=== PATIENT | male | born 1935 | race Caucasian/White ===

== ENCOUNTER 2016-10-03 13:26 | Inpatient (IN) | payer MEDICARE ==
[2016-10-03] MEDS ORDERED: Acetaminophen TAB* 325 MG PO PRN (14:16)
[2016-10-03] MEDS ORDERED: Ondansetron INJ* 2 MG/ML VIAL IV PRN (14:16)
--- NOTE | 2016-10-03 14:35 | RAD ---
Indication: Tachypnea. Single frontal view of the chest performed at 1415 hours was reviewed. Comparison is made with previous exam dated April 23, 2015. No mediastinal shift is noted. Heart is of normal size and configuration. Lung holland appear clear. IMPRESSION: NO ACTIVE CARDIOPULMONARY DISEASE IS NOTED.
[2016-10-03 15:06] LABS: Hematocrit 36 % (42-52); Mean Corpuscular HGB Conc 33 g/dl (31-36); Mean Corpuscular Hemoglobin 29 pg (27-31); Mean Corpuscular Volume 89 fL (80-94); Mean Platelet Volume 8 um3 (7.4-10.4); Red Cell Distribution Width 17 % (10.5-15); White Blood Count 9.2 10^3/ul (3.5-10.8)
--- NOTE | 2016-10-03 15:25 | ED ---
Da De Jesus Billy, scribed for Charlie Fabian MD on 10/03/16 at 1406 . Complex/Multi-Sys Presentation - HPI Summary HPI Summary: Patient is an 81 year-old male BIBA to [facility] from Dr. Ivey (cardiology) after an abnormal stress test. He denies any chest pain or SOB in the ED at this time. He has chronic bilateral pedal edema. - History Of Current Complaint Chief Complaint: EDChestPainROMI Time Seen by Provider: 10/03/16 13:45 Hx Obtained From: Patient Onset/Duration: Gradual Onset Timing: Intermittent, Lasting: Severity Currently: Moderate Aggravating Factor(s): none Alleviating Factor(s): none Associated Signs And Symptoms: Positive: Edema. 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 Denies: Hx Diabetes, Hx Thyroid Disease Cardiovascular History: Reports: Hx Coronary Artery Disease, Hx Hypertension - WELL CONTROLLED Denies: Hx Angina, Hx Peripheral Vascular Disease GI History: Reports: 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, Other GI Disorders - THIS ADMISSION - GI BLEED History: Reports: Hx Benign Prostatic Hyperplasia, Other Problems/ Disorders - BPH Musculoskeletal History: Reports: Hx Arthritis - RA Denies: Hx Osteoporosis Sensory History: Reports: Hx Cataracts, Hx Contacts or Glasses Denies: Hx Hearing Aid Opthamlomology History: Reports: Hx Cataracts, Hx Contacts or Glasses Neurological History: Denies: Hx Headaches - Surgical History Surgery Procedure, Year, and Place: hernia repair X2 [facility] [place] APPROX 2009 Hx Anesthesia Reactions: No Infectious Disease History: No Infectious Disease History: Denies: Traveled Outside the [place] in Last 30 Days - Family History Known Family History: Negative: Cardiac Disease, Hypertension, Diabetes - Social History Alcohol Use: Daily Alcohol Amount: 2 BEERS/DAY Substance Use Type: Reports: None Smoking Status (MU): Former Smoker Type: Cigarettes Have You Smoked in the Last Year: No Review of Systems Negative: Chest Pain Negative: Shortness Of Breath Positive: Edema All Other Systems Reviewed And Are Negative: Yes Physical Exam Triage Information Reviewed: Yes Vital Signs On Initial Exam: Initial Vitals Temp Pulse Resp BP Pulse Ox 98.3 F 72 18 130/74 99 10/03/16 13:30 10/03/16 13:30 10/03/16 13:30 10/03/16 13:30 10/03/16 13:30 Vital Signs Reviewed: Yes Appearance: Positive: Well-Appearing, No Pain Distress Skin: Positive: Warm, Skin Color Reflects Adequate Perfusion, Dry Head/Face: Positive: Normal Head/Face Inspection Eyes: Positive: EOMI, TRAVIS Neck: Positive: Supple Respiratory/Lung Sounds: Positive: Clear to Auscultation, Breath Sounds Present Cardiovascular: Positive: RRR Abdomen Description: Positive: Nontender, Soft Musculoskeletal: Positive: Strength/ROM Intact, Edema Left - bilat pedal edema, Edema Right - bilat pedal edema Neurological: Positive: Normal, Sensory/Motor Intact, Alert, Oriented to Person Place, Time Psychiatric: Positive: Affect/Mood Appropriate Diagnostics - Vital Signs Vital Signs Temp Pulse Resp BP Pulse Ox 10/03/16 13:30 98.3 F 72 18 130/74 99 - Laboratory Result Diagrams: 10/03/16 14:50 Lab Statement: Any lab studies that have been ordered have been reviewed, and results considered in the medical decision making process. - Radiology CXR Xray Interpretation: No Acute Changes Radiology Interpretation Completed By: Radiologist - EKG 1340 Cardiac Rate: NL EKG Rhythm: Sinus Rhythm - 71 Ectopy: PACs EKG Interpretation: 1mm ML in III; ST dep in V4-V6. Complex Multi-Symp Course/Dx Assessment/Plan: DISCUSSED WITH DR JANSEN. ADMIT HOSPITALIST STABLE. - Diagnoses Provider Diagnoses: abnormal stress, Chest pain - Physician Notifications Discussed Care Of Patient With: Dr. Lechuga (cardiology) @ 1402: consult Dr. Jansen. Dr. Jansen (interventional cardiology) @ 1408: recommends admission. Dr. Lewis (hospitalist) @ 1413: accepts admission. Discharge - Discharge Plan Condition: Stable Disposition: ADMITTED TO [facility] documentation as recorded by the Da ramsey Billy accurately reflects the service I personally performed and the decisions made by , Charlie Fabian MD.
[2016-10-03 15:28] LABS: Albumin 3.6 g/dL (3.2-5.2); BUN/Creatinine Ratio 31.8 (8-20); C Reactive Protein 2.84 mg/L (< 5.00); Calcium 9.2 mg/dL (8.6-10.3); EGFR African American 110.7 (>60); EGFR Non-African American 86.1 (>60); Globulin 2.6 g/dL (2-4); Magnesium 2.2 mg/dL (1.9-2.7); Potassium 4.1 mmol/L (3.5-5.0); Total Bilirubin 0.5 mg/dL (0.2-1.0); Total Protein 6.2 g/dL (6.4-8.9)
[2016-10-03] MEDS ORDERED: Nitroglycerin TAB 0.4 MG* 0.4 MG TAB SL PRN (15:32)
[2016-10-03 15:37] LABS: Troponin I 1.65 ng/mL (<0.04)
[2016-10-03 15:46] LABS: TSH (Thyroid Stimulating Horm) 4.19 mcIU/mL (0.34-5.60)
[2016-10-03] MEDS ORDERED: Enoxaparin(*) 80 MG/0.8 ML SYR SUBCUT SCH (16:00)
[2016-10-03] MEDS ORDERED: Aspirin Low Dose CHEW TAB* 81 MG PO ONE (17:00)
--- NOTE | 2016-10-03 18:10 | HP ---
AMENDED REPORT NOW INCLUDES DATE OF ADMISSION ADMISSION HISTORY AND PHYSICAL: DATE OF ADMISSION: 10/03/16 PRIMARY CARE PROVIDER: Dr. Dumont. INFANT TODDLER LEAD TEACHER: Dr. Ivey. HEALTHCARE PROXY: Monserrat, his daughter. CODE STATUS: Full. SOURCE OF INFORMATION: History obtained from interview with the patient, review of [facility] records. CHIEF COMPLAINT: Abnormal stress test. HISTORY OF PRESENT ILLNESS: This is an 81-year-old man, past medical history of rheumatoid arthritis, on steroids; BPH; hypertension, who has had abdominal pain, also described as chest pain that was described as "just hurt," better with standing, worse with any types of exertion, either "mental or physical," improved with rest. He believes the pain started sometime around when he restarted his prednisone in August of 2016 after being off it since March 2016. The pain can last up to 5 minutes; however, recently, it has been lasting longer. It is not associated with any shortness of breath, lightheadedness, or PND, but does note increasing orthopnea, essentially, he has been sleeping in the recliner for at least the last week as well as increasing lower extremity edema. He underwent a stress test as an outpatient under the direction of Dr. Ivey, which was interpreted as a high-risk stress for which he was referred to the emergency room for evaluation, admission, and likely cardiac catheterization. When seen by this author, the patient denies any chest pain, shortness of breath, nausea, vomiting, or palpitations. He generally feels well and is in agreement with the plan. PAST MEDICAL HISTORY: Includes rheumatoid arthritis, on steroids; BPH; hypertension; hypercholesterolemia; history of malignant neoplasm of the prostate; first-degree AV block; osteoarthritis; anemia. MEDICATIONS: Include: 1. Prednisone 20 mg alternating with 30 mg. 2. Flomax 0.4 mg . 3. Prilosec 20 mg twice daily. 4. Multivitamin 1 tab daily. 5. Prostate Health over the counter. 6. Metoprolol 25 twice daily. 7. Benadryl 25 mg twice daily. 8. Vitamin D 400 units daily. 9. Atorvastatin 20 mg daily. ALLERGIES TO MEDICATIONS: Include INFLUENZA VACCINE. FAMILY HISTORY: Mother with breast cancer. Father, noncontributory. SOCIAL HISTORY: Former tobacco, quit in 1985. Smoked on and off up to a pack a day at his most. No alcohol, previous 1 to 2 drinks per day. REVIEW OF SYSTEMS: As per HPI; otherwise, all other systems negative. PHYSICAL EXAMINATION GENERAL: Sitting up in the bed, interactive, pleasant, in no apparent distress. VITAL SIGNS: 130/71, heart rate 72, respiratory rate 16, 99% on room air, T- max in the emergency room 98.3. HEENT: Oropharynx clear. Has moist mucous membranes. Sclerae are anicteric. LUNGS: Clear to auscultation. HEART: Regular rate and rhythm. ABDOMEN: Soft, nontender, nondistended. EXTREMITIES: Warm and well perfused. He has 3+ pitting edema to the knees and an area of erythema over his medial left lower extremity that is not warm or tender to palpation. NEUROLOGIC: He is alert and oriented x3. His cranial nerves II through XII are intact. LABORATORY DATA: Labs reviewed: BUN 27, creatinine 0.85. CK-MB is 18.9. Troponin I is still pending. CRP 2.8. BNP 755. TSH is still pending. INR 0.87. ASSESSMENT AND PLAN: This is an 81-year-old gentleman, past medical history as indicated above, had gastric pain, also described as chest pain for at least a month now, identified with a high-risk stress, admitted now for further monitoring prior to likely cardiac catheterization. 1. High-risk stress. Discussed the care with Dr. Roy, who will evaluate the patient later today. Can eat now, will be made n.p.o. by Dr. Roy should the plan be to pursue to cardiac catheterization. Continue aspirin in the morning. Nitroglycerin sublingual available if the patient should develop chest pain. Continue telemetry monitoring. 2. Hypertension: Continue metoprolol. 3. Rheumatoid arthritis: Continue prednisone 30 mg a day. Typically alternating with 20 mg. Can consider increasing dose in the setting of stress should he develop hypotension. We will not give stress-dose steroids at this time in the setting of cardiac catheterization. 4. Benign prostatic hyperplasia: Continue tamsulosin. 5. DVT prophylaxis: Heparin subcu. 6. Code status: Full. CC: Dr. Dumont; Dr. Ivey* [id number]/[facility] #: [id number] [facility]
[2016-10-03 18:27] LABS: Urine Bilirubin Negative (Negative); Urine Glucose Negative (Negative); Urine Nitrite Negative (Negative)
[2016-10-03] MEDS ORDERED: Nitroglycerin 0.3 MG/HR PATCH* (7.5 MG) TRANSDERM SCH (20:00)
--- NOTE | 2016-10-03 20:46 | CONS ---
INTERVENTIONAL CARDIOLOGY CONSULT NOTE: DATE OF CONSULT: 10/03/16 PRIMARY CARE PHYSICIAN: Jomar Dumont DO TAX COMPLIANCE REPRESENTATIVE: Jesus Alberto Ivey DO HISTORY OF PRESENT ILLNESS: An 81-year-old male admitted with unstable angina, markedly positive stress test. He is a somewhat vague historian, has extensive records in [facility], which I have reviewed including reviewing his CT images, EKGs, and labs. He apparently has bullous pemphigoid for which he is treated with intermittent steroids. He also has rheumatoid arthritis. He was hospitalized here 04/22/15 with a cellulitis and sepsis. During that hospitalization, had a rise in troponins thought possibly due to a type 2 infarct. He had an echocardiogram, which was technically limited, but showed grossly normal ejection fraction. Lexiscan on 04/25/15 was low risk without ischemia or infarct. He was discharged on aspirin and Plavix and prednisone. Within a week or two, he was admitted with a duodenal ulcer with GI bleed with hemoglobin as low as 6.9. Aspirin and Plavix were stopped. He had a duodenal ulcer by endoscopy, was readmitted a few days later with weakness. Repeat echo showed EF of 45 to 50 with global hypokinesis , moderate pulmonary hypertension at 42. During his GI bleed hospitalization, he had again small rise in troponin up to 1.88. Since then, he describes probable predictable exertional angina, although he describes a lot of symptoms of gas as well as precordial discomfort with activity and seems to mix them up. However, until about a week ago, his precordial exertional chest discomfort was fairly stable and not limiting. He was able to walk up and down his cellar flights without any problems. In the past week, his precordial discomfort has worsened dramatically to the point where he had it at rest yesterday. He describes as present all night long until he took some Gas-X. Today, he saw Dr. Ivey, had a stress test where he only exercised for 3 minutes, had angina for 12 minutes, per report LVEF was 29% and he had partial reversible defect in the RCA and LAD distributions accompanied by transient ischemic dilatation. He was then sent to the ER and admitted. He is currently pain-free. He denies PND or orthopnea, prior exertional dyspnea. He has chronic lower extremity edema, right worse than left that he attributes to his pemphigoid and steroids. Prior CT in 2014 by my measurement did show pulmonary hypertension with proximal pulmonary arteries in excess of 20 mm. The echo in May of 2015 estimated moderate pulmonary hypertension. He has not had any further bleeding, but has not been on antiplatelet therapy. PAST MEDICAL HISTORY: Rheumatoid arthritis, hypertension, bullous pemphigoid, previous duodenal ulcer. PREHOSPITAL MEDICATIONS: 1. Prednisone 30, 20 every other day. 2. Flomax 0.4 daily. 3. Adenosylmethionine. 4. Vitamins. 5. Lopressor 25 b.i.d. 6. Nasalide. 7. Lipitor 20 daily. 8. Tylenol. He has not been on long-term PPI. ALLERGIES: According to the record to INFLUENZA VACCINE, which he blames for causing his bullous pemphigoid. SOCIAL HISTORY: He is independent, lives alone. FAMILY HISTORY: Negative for premature coronary artery disease. PHYSICAL EXAMINATION: General: He is an elderly male, he looks somewhat frail , but he is ambulatory and oriented. Vital Signs: His blood pressure today 134 /54, pulse 60s to 70s, sinus rhythm. His lungs are clear to percussion and auscultation. Neck: JVP is upper limits of normal at 10. Carotids are normal without bruits. HEENT: Unremarkable without xanthelasma, scleral injection, or jaundice. Cardiac Exam: I cannot feel the RV or the apex. Heart sounds are fairly distant. He has a probable S4 gallop. I do not hear an S3 or a murmur. Abdomen: Soft, nontender, aorta and liver are not palpable. He has no abdominal bruit. Femoral pulses are very faintly palpable bilaterally without bruits. Extremities: His radials are normal, his posterior tibials are present by Doppler. He does not have palpable dorsalis pedis. He has bilateral 1 to 2+ pitting edema, has erythema on the left santiago, which he says has been present for many months since his pemphigoid. Neuro: He is alert, oriented, seems to have somewhat short-term memory loss. LABORATORY DATA: Hemoglobin is normal at 12. BMP is unremarkable. Troponins 1.65. BNP is high at 755 without prior. Chest x-ray by my review suggest generous pulmonary arteries without heart failure. EKG shows less than 0.[address] elevation in III with SC depression and anterolateral ST segment depression in the precordial leads, actually improved compared to 05/18/15. IMPRESSION: 1. Troponin positive acute coronary syndrome. He had by history prolonged chest discomfort yesterday evening, which resolved with Gas-X. Today, he had an early positive stress test with TID and at least 2-vessel distribution scar with perimeter ischemia. LVEF has dropped to 29% from low normal. Prior echo demonstrated moderate pulmonary hypertension. We discussed the diagnosis, cardiac cath, the other radial approach, discussed possible need for percutaneous revascularization with dual antiplatelet therapy. Given his duodenal ulcer within 2 weeks of dual antiplatelet therapy, we will utilize bare -metal stents if he needs stenting. He will also be placed on gastroprotection. 2. LV systolic dysfunction, currently compensated. 3. Hypertension. 4. Rheumatoid arthritis. 5. Diagnosis of bullous pemphigoid. 6. Moderate pulmonary hypertension by echo and supported by CT imaging. Thanks for the consultation. I will follow with you as needed. CC: Jomar Dumont DO; Jesus Alberto Ivey DO* [id number]/[facility] #: [id number] [facility]ERYessi
[2016-10-03] MEDS ORDERED: Tamsulosin CAP* 0.4 MG PO SCH (21:00)
[2016-10-03] MEDS ORDERED: Metoprolol Tartrate TAB* 25 MG PO SCH (21:00)
[2016-10-03] MEDS ORDERED: Atorvastatin* 40 MG TAB PO SCH (21:00)
[2016-10-03] MEDS ORDERED: Atorvastatin* 80 MG TAB PO SCH (21:00)
[2016-10-03] MEDS: Metoprolol Tartrate TAB* 25 MG PO SCH (21:46)
[2016-10-03] MEDS: Omeprazole CAP* 20 MG PO SCH (21:47)
[2016-10-03] MEDS ORDERED: Heparin VIAL(*) 5000 UNITS/ML VIAL (FIVE THOUSAND) SUBCUT SCH (22:00)
[2016-10-04] MEDS: Metoprolol Tartrate TAB* 25 MG PO SCH ×2 (02:06→08:22)
[2016-10-04] MEDS ORDERED: NS 0.9% 1000 ML* 1,000 ML IV SCH (08:00)
[2016-10-04] MEDS: Omeprazole CAP* 20 MG PO SCH (08:21)
[2016-10-04] MEDS ORDERED: Aspirin EC Low Dose* 81 MG TAB.EC PO SCH (09:00)
[2016-10-04] MEDS ORDERED: predniSONE TAB* 10 MG PO SCH (09:00)
[2016-10-04] MEDS ORDERED: Nitro Patch/OINT Remove PATCH OFF SCH (10:00)
[2016-10-04] MEDS ORDERED: Midazolam* 1 MG/ML 5 ML VIAL (5 MG) ONE (11:02)
[2016-10-04] MEDS ORDERED: Heparin(*) 1000 UNIT/ML 10 ML VIAL CATH LAB IV ONE (11:02)
[2016-10-04] MEDS ORDERED: VERAPAMIL 2.5 MG/ML 4 ML VIAL ONE (11:02)
[2016-10-04] MEDS ORDERED: fentaNYL* 50 MCG/ML 2 ML VIAL (100 MCG VIAL) ONE (11:02)
[2016-10-04] MEDS ORDERED: nitroGLYCERIN DRIP* 250 ML ONE (11:03)
[2016-10-04] MEDS ORDERED: Lidocaine 1% INJ* 10 MG/ML 30 ML SDV ONE (11:03)
[2016-10-04] MEDS ORDERED: Iohexol 350 (CONTRAST) 200 ML MDV IV ONE (11:03)
[2016-10-04] MEDS ORDERED: Heparin 2 UNITS/ML IVPREMIX* 2,000 ML IV ONE (11:03)
[2016-10-04 11:17] VITALS: BP 110/48
--- NOTE | 2016-10-04 14:38 | TRS ---
DATE OF ADMISSION: 10/03/2016. DATE OF TRANSFER TO [facility]: 10/04/2016. PRIMARY CARE PROVIDER: Dr. Dumont. FOUNDER CEO & PRESIDENT: Dr. Ivey. PRINCIPAL DIAGNOSIS: Left main coronary artery disease and totally occluded right coronary artery. SECONDARY DIAGNOSES: 1. Bullous pemphigoid. 2. Rheumatoid arthritis. 3. Benign prostatic hypertrophy. 4. Hypertension. 5. Hypercholesterolemia. 6. Prostate cancer. DISCHARGE MEDICATIONS: 1. Tylenol 650 mg p.o. q.4 hours prn pain. 2. Aspirin 81 mg p.o. daily. 3. Lipitor 80 mg p.o. at bedtime. 4. Metoprolol Tartrate 25 mg p.o. q.6 hours. 5. Nitroglycerin 7.5 mg patch apply topically daily. 6. Nitroglycerin 0.4 mg SL q.5 minutes prn chest pain. 7. Prilosec 20 mg p.o. daily. 8. Zofran 4 mg IV q.4 hours prn nausea. 9. Prednisone 30 mg p.o. daily. 10. Normal saline 100 ml per hour. 11. Tamsulosin 0.4 mg p.o. at bedtime. HOSPITAL COURSE: Mr. Dong is an 81-year-old male who presented to the emergency room on 10/03/2016 with an abnormal stress test. The patient was referred to the emergency room after having an abnormal stress test under the direction of Dr. Ivey. The patient was referred again to the ER for admission and likely cardiac catheterization. At the time of admission, the patient denied any chest pain, shortness of breath, nausea, vomiting or palpitations. In the emergency room, the patient had routine lab work obtained which revealed his troponin to be elevated at 1.65. This peaked at 2.18. The patient was seen in consultation by Dr. Roy who noted that his stress test revealed at least two vessel distribution scar with perimeter ischemia and that his LVEF had dropped to 29 percent from low normal. Cardiac catheterization was recommended via radial approach and the patient agreed. Of note, the patient has a history of duodenal ulcer and it is felt that if stenting was needed, a bare metal stent would be utilized. The patient went for cardiac catheterization today, 10/04/2016. He was found to have a totally occluded right coronary artery and a "tight" left main. At that point, the procedure was aborted. The decision was made for transfer to [facility]. The patient has been accepted in transfer by Dr. Chao. The patient will be transferred today, 10/04/2016. At this point again, the patient is chest pain free and doing well post cardiac catheterization. FOLLOW-UP CONCERNS: The patient is being transferred [facility] today, 10/04/2016. He has been accepted by Dr. Chao. ACTIVITY LEVEL: Bed rest. DIET: Low fat. CONDITION ON TRANSFER: Stable. Thirty-five minutes were spent on the transfer of this patient. CC: Dr. Ivey; Dr. Dumont * [id number]/[facility] #: [id number] [facility]
--- NOTE | 2016-10-04 17:11 | PN ---
Subjective Date of Service: 10/04/16 Interval History: Pt is feeling well. He has mild soreness in his R wrist. No chest pain or SOB at this time. Objective Vital Signs 10/03/16 10/03/16 10/04/16 20:00 21:32 00:11 Temperature 98.0 F 97.5 F Pulse Rate 62 62 Respiratory 16 18 20 Rate Blood Pressure 108/41 115/52 (mmHg) O2 Sat by Pulse 98 99 Oximetry 10/04/16 10/04/16 10/04/16 04:31 07:14 08:00 Temperature 97.7 F 98.8 F Pulse Rate 58 57 Respiratory 20 16 16 Rate Blood Pressure 103/46 110/44 (mmHg) O2 Sat by Pulse 97 96 Oximetry 10/04/16 11:04 Temperature 98.7 F Pulse Rate 57 Respiratory 18 Rate Blood Pressure 110/48 (mmHg) O2 Sat by Pulse 100 Oximetry Oxygen Devices in Use Now: None Appearance: Elderly male sitting up in the stretcher, NAD Eyes: No Scleral Icterus Ears/Nose/Mouth/Throat: Mucous Membranes Moist Respiratory: Symmetrical Chest Expansion and Respiratory Effort, Clear to Auscultation - anteriorly Cardiovascular: NL Sounds; No Murmurs; No JVD, RRR, - - R wrist in immobilizer, marked B/L LE edema Abdominal: NL Sounds; No Tenderness; No Distention Extremities: No Clubbing, Cyanosis Skin: No Rash or Ulcers, No Nodules or Sclerosis Neurological: Alert and Oriented x 3 Result Diagrams: 10/03/16 14:50 10/03/16 14:50 Assess/Plan/Problems-Billing Mr Dong is an 81 yo M who has a h/o bullous pemphigoid, RA and HTN who presented to the ER after having an abnormal stress test. - Patient Problems (1) CAD (coronary artery disease) Status: Acute Code(s): I25.10 - ATHSCL HEART DISEASE OF [place] CORONARY ARTERY W/O ANG PCTRS SNOMED Code(s): 58091292 Comment: Pt was found to have a totally occluded RCA and a "tight" left main on cath earlier today. He has agreed to transfer to [facility] for bypass. Dr. Chao has accepted the patient in transfer and he will be going there this afternoon. Continue ASA and lipitor. (2) BPH (benign prostatic hypertrophy) Status: Acute Code(s): N40.0 - BENIGN PROSTATIC HYPERPLASIA WITHOUT LOWER URINRY TRACT SYMP SNOMED Code(s): 826989174 Comment: Continue flomax. (3) Bullous pemphigoid Status: Acute Code(s): L12.0 - BULLOUS PEMPHIGOID SNOMED Code(s): 13086925 Comment: Pt has bandage over lesion on anterior R lower leg. Continue prednisone 30mg daily. (4) DVT prophylaxis Status: Acute Code(s): XJU0685 - SNOMED Code(s): 378691777 Comment: SQ heparin (5) Full code status Status: Acute Code(s): Z78.9 - OTHER SPECIFIED HEALTH STATUS SNOMED Code(s) : 360531328
--- NOTE | 2016-10-06 22:59 | CATH ---
CC: Dr. Dumont; Jesus Alberto Ivey DO; Dr. Chao at [facility] CATH REPORT: DATE OF PROCEDURE: 10/04/16 PRIMARY CARE PHYSICIAN: Dr. Dumont. SHAREPOINT TRAINER: Jesus Alberto Ivey DO. PROCEDURES: Right radial artery access, bilateral selective coronary cineangiography, left heart ca theterization, LV gram not performed. HISTORY: An 81-year-old male with bullous pemphigoid and rheumatoid arthritis on steroids, prior hi story of GI bleeding on dual antiplatelet therapy in 2014, now presenting with class 4 angina with p rolonged discomfort the day prior to admission. Recent stress test was early positive for angina, i maging showed RCA and LAD distribution partially reversible defect and a decrease in LV EF to 29% fr om previous EF of 45% to 50% in 2015. PROCEDURE ACCESS: Right radial artery sheath, 6-F slender. MEDICATIONS: 1. Subcu lidocaine. 2. IV Versed. 3. IV fentanyl. 4. Heparin 3000 units, nitroglycerin 300 mcg. 5. Verapamil 3 mg IA. DIAGNOSTIC CATHETERS: 5-F TIG 4, 5-F pigtail, 5-FR4. HEMODYNAMICS: Initial BP 124/63, LV 101/14, no aortic valve gradient on pullback. ANGIOGRAPHY: Left main: The left main is heavily calcified as are the left coronary arteries. The d istal left main has an 80% distal stenosis. LAD: The LAD is moderate in size, extends almost to the apex, it supplies a moderate diagonal branc h, which is a proximal tubular poorly visualized probably significant stenosis. The LAD continuatio n has luminal irregularity, but no significant stenosis. Circumflex: The circumflex is not dominant, is calcified, supplies a large ramus branch, the circum flex proper has a single marginal branch, which has a mid tubular 40% to 50% stenosis. There are le ft to right collaterals to the RCA with filling of a RPDA and posterolateral. RCA: The RCA is calcified, dominant, occluded a few centimeters from the origin, fills by left to r ight collaterals. LV gram was not performed. CONCLUSION: 1. Significant three-vessel disease with left main stenosis. 2. Normal left-sided hemodynamics, LV gram not performed because of left main disease. 3. Successful right radial artery access. 4. The patient will be transferred for bypass surgery. [id number]/[facility] #: [id number]
== END 2016-10-04 15:00 | disposition short-term general hospital (02) | DRG 287 ==
LOC: ED 13:26 → MEDTELE 14:16
PROVIDERS: ADMIT Internal Medicine; ATTEND Hospitalist
PROC: 4A023N7 Measurement of Cardiac Sampling and Pressure, Left Heart, Percutaneous Approach (ICD-10-PCS; principal; 2016-10-03)
PROC: B2111ZZ Fluoroscopy of Multiple Coronary Arteries using Low Osmolar Contrast (ICD-10-PCS; 2016-10-03)
DX: I25.10 Atherosclerotic heart disease of native coronary artery without angina pectoris (principal); I25.82 Chronic total occlusion of coronary artery; I27.2 Other secondary pulmonary hypertension; L12.0 Bullous pemphigoid; K26.9 Duodenal ulcer, unspecified as acute or chronic, without hemorrhage or perforation; M06.9 Rheumatoid arthritis, unspecified; I10 Essential (primary) hypertension; Z88.7 Allergy status to serum and vaccine; N40.0 Benign prostatic hyperplasia without lower urinary tract symptoms; H26.9 Unspecified cataract; Z87.891 Personal history of nicotine dependence; E78.00 Pure hypercholesterolemia, unspecified; I44.0 Atrioventricular block, first degree; Z85.46 Personal history of malignant neoplasm of prostate; Z79.82 Long term (current) use of aspirin; Z79.52 Long term (current) use of systemic steroids
CPT/HCPCS: 36415; 71010; 80053; 81003; 82550; 82553; 83605; 83690; 83735; 83880; 84443; 84484; 85025; 85610; 85730; 86140; 93005; 93458; A9270-GY; J1644; J1650; J2250; J3010; J7512

== ENCOUNTER 2018-12-28 13:28 | Inpatient (IN) | payer MEDICARE ==
[2018-12-28 14:24] LABS: Hematocrit 28 % (36-46); Hemoglobin 9.2 g/dL (14.0-18.0); Mean Corpuscular HGB Conc 33 g/dL (31-36); Mean Corpuscular Hemoglobin 28 pg (27-31); Mean Corpuscular Volume 85 fL (80-94); Mean Platelet Volume 6.6 fL (7.4-10.4); Platelet Count 497 10^3/uL (150-450); Red Blood Count 3.31 10^6 /uL (4.18-5.48); Red Cell Distribution Width 15 % (10.5-15); White Blood Count 14.8 10^3/uL (3.5-10.8)
[2018-12-28 14:40] LABS: Albumin 2.9 g/dL (3.2-5.2); Albumin/Globulin Ratio 0.9 (1-3); BUN/Creatinine Ratio 20.5 (8-20); Calcium 8.4 mg/dL (8.6-10.3); EGFR African American 71.7 (>60); EGFR Non-African American 59.2 (>60); Globulin 3.1 g/dL (2-4); Total Bilirubin 0.3 mg/dL (0.2-1.0)
[2018-12-28 14:41] LABS: Potassium 5.4 mmol/L (3.5-5.0)
[2018-12-28 14:42] LABS: Troponin I 0.01 ng/mL (<0.04)
--- NOTE | 2018-12-28 14:44 | ED ---
Complex/Multi-Sys Presentation - HPI Summary HPI Summary: This patient is an 83 year old MF brought in by ambulance to [facility] with a chief complaint of weakness that began one week ago. The patient rates the pain 0/10 in severity. Symptoms aggravated by nothing. Symptoms alleviated by nothing. Patient reports decreased chills, decreased appetite, weakness, productive cough , SOB, postnasal drip, edema, and erythema of the left calf. Pt denies any fever , erythema of eyes, sore throat, CP, abdominal pain, N/V, dysuria, hematuria, myalgia, rash, or dizziness. Patient states he sleeps sitting up with many pillows behind his back. Patient states he was recently taken off of Torsemide. Temperature: 100.2 F - History Of Current Complaint Chief Complaint: EDShortnessOfBreath Time Seen by Provider: 12/28/18 14:05 Hx Obtained From: Patient Onset/Duration: Sudden Onset, Lasting Weeks, Still Present Timing: Constant Severity Currently: Mild Severity Initially: Mild Aggravating Factor(s): Nothing Alleviating Factor(s): Nothing Associated Signs And Symptoms: Positive: Other - Positive decreased chills, decreased appetite, weakness, productive cough, SOB, postnasal drip, edema, and erythema of the left calf. Negative any fever, erythema of eyes, sore throat, CP , abdominal pain, N/V, dysuria, hematuria, myalgia, rash, or dizziness - Allergies/Home Medications Allergies/Adverse Reactions: Allergies Allergy/AdvReac Type Severity Reaction Status Date / Time Influenza Virus Vaccines Allergy Blisters Verified 12/28/18 14:30 Home Medications: Home Medications Pantoprazole TAB * [Protonix TAB*] 40 mg PO DAILY 12/28/18 [History Confirmed ] PMH/Surg Hx/FS Hx/Imm Hx Previously Healthy: No Endocrine/Hematology History: Reports: Hx Anemia - 05/24 GI BLEED AFTER PREDNISONE TX FOR FLU SHOT REACTION, Other Endocrine/Hematological Disorders - 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 Denies: Hx Diabetes, Hx Thyroid Disease Cardiovascular History: Reports: Hx Coronary Artery Disease, Hx Hypertension - WELL CONTROLLED, Other Cardiovascular Problems/Disorders - HLD Denies: Hx Angina, Hx Peripheral Vascular Disease GI History: Reports: Hx Gastrointestinal Bleed, 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 , Other GI Disorders - I BLEED History: Reports: Hx Benign Prostatic Hyperplasia, Other Problems/ Disorders - BPH Musculoskeletal History: Reports: Hx Arthritis - RA Denies: Hx Osteoporosis Sensory History: Reports: Hx Cataracts, Hx Contacts or Glasses Denies: Hx Hearing Aid Opthamlomology History: Reports: Hx Cataracts, Hx Contacts or Glasses Neurological History: Denies: Hx Headaches - Surgical History Surgery Procedure, Year, and Place: hernia repair X2 [facility] 2009, cataract surgery Hx Anesthesia Reactions: No Infectious Disease History: No Infectious Disease History: Denies: Traveled Outside the [place] in Last 30 Days - Family History Known Family History: Negative: Cardiac Disease, Hypertension, Diabetes - Social History Occupation: Retired Lives: Alone Alcohol Use: Occasionally Alcohol Amount: 2 BEERS/DAY Hx Substance Use: No Substance Use Type: Reports: None Hx Tobacco Use: Yes Smoking Status (MU): Former Smoker Type: Cigarettes Have You Smoked in the Last Year: No Review of Systems Positive: Chills. Negative: Fever Negative: Erythema ENT: Other - Positive postnasal drip Negative: Sore Throat Negative: Chest Pain Positive: Shortness Of Breath, Cough Positive: Other - Decreased appetite. Negative: Abdominal Pain, Vomiting, Nausea Negative: dysuria, frequency, hematuria Positive: Edema. Negative: Myalgia Positive: Other - Positive erythema of left calf. Negative: Rash Neurological: Other - Negative dizziness Positive: Weakness All Other Systems Reviewed And Are Negative: Yes Physical Exam - Summary Physical Exam Summary: Constitutional: Well-developed, Well-nourished, Alert. (-) Distressed Skin: Warm, Dry, no erythema, skin is intact HENT: Normocephalic; Atraumatic Eyes: Conjunctiva normal Neck: Musculoskeletal ROM normal neck. (-) JVD, (-) Stridor, (-) Tracheal deviation Cardio: Rhythm regular, rate normal, Heart sounds normal; Intact distal pulses; The pedal pulses are 2+ and symmetric. Radial pulses are 2+ and symmetric. (-) Murmur Pulmonary/Chest wall: Effort normal. (-) Respiratory distress, (-) Wheezes, (-) Rales Abd: Soft, (-) tenderness, (-) Distension, (-) Guarding, (-) Rebound Musculoskeletal: 1+ pitting edema in bilateral lower extremities Lymph: (-) Cervical adenopathy Neuro: Alert, Oriented x3 Psych: Mood and affect Normal Triage Information Reviewed: Yes Vital Signs On Initial Exam: Initial Vitals Temp Pulse Resp BP Pulse Ox 98.4 F 132 19 146/81 96 12/28/18 13:32 12/28/18 13:32 12/28/18 13:32 12/28/18 13:32 12/28/18 13:32 Vital Signs Reviewed: Yes Diagnostics - Vital Signs Vital Signs Temp Pulse Resp BP Pulse Ox 12/28/18 14:29 96 12/28/18 14:17 83 21 131/61 96 12/28/18 14:01 98 15 95 12/28/18 14:00 99 18 98/60 95 12/28/18 13:32 98.4 F 132 19 146/81 96 - Laboratory Lab Results: Lab Results 12/28/18 12/28/18 Range/Units 14:15 14:15 WBC 14.8 H (3.5-10.8) 10^3/uL RBC 3.31 L (4.18-5.48) 10^6 /uL Hgb 9.2 L (14.0-18.0) g/dL Hct 28 L (36-46) % MCV 85 (80-94) fL MCH 28 (27-31) pg MCHC 33 (31-36) g/dL RDW 15 (10.5-15) % Plt Count 497 H (150-450) 10^3/uL MPV 6.6 L (7.4-10.4) fL Neut % (Auto) Pending Lymph % (Auto) Pending [place] % (Auto) Pending Eos % (Auto) Pending Baso % (Auto) Pending Absolute Neuts (auto) Pending Absolute Lymphs (auto) Pending Absolute Monos (auto) Pending Absolute Eos (auto) Pending Absolute Basos (auto) Pending Absolute Nucleated RBC Pending Nucleated RBC % Pending Lactic Acid 1.6 (0.5-2.0) mmol/L Result Diagrams: 12/28/18 14:15 12/28/18 14:15 Lab Statement: Any lab studies that have been ordered have been reviewed, and results considered in the medical decision making process. - Radiology Chest XR Radiology Interpretation Completed By: Radiologist Summary of Radiographic Findings: CXR reveals, per radiologist, right basilar mass versus atelectasis. ED physician has reviewed this radiology report. - CT Chest CT CT Interpretation Completed By: Radiologist Summary of CT Findings: Chest CT reveals, per radiologist, solid appearing mass in the right middle lobe measuring 4.1 x 6.2 x 7.0 cm with areas of low density. Small mediastinal lymph node in the precarinal space measuring up to 1.0 cm. No bony lesions are identified. Cholelithiasis. ED physician has reviewed this radiology report. - EKG 1352 Cardiac Rate: NL EKG Rhythm: Sinus Rhythm - [address] Segment: Normal Summary of EKG Findings: An EKG taken at 1352 reveals normal sinus rhythm at 99 BPM with no STEMI. Complex Multi-Symp Course/Dx Course Of Treatment: This patient is an 83 year old MF brought in by ambulance to [facility] with a chief complaint of weakness that began one week ago. The patient rates the pain 0/10 in severity. Temperature: 100.2 F. Physical Exam Findings: 1+ pitting edema to the bilateral lower extremities, skin is intact, no erythema. An EKG taken at 1352 reveals normal sinus rhythm at 99 BPM with no STEMI. CXR reveals, per radiologist, right basilar mass versus atelectasis. Chest CT reveals, per radiologist, solid appearing mass in the right middle lobe measuring 4.1 x 6.2 x 7.0 cm with areas of low density. Small mediastinal lymph node in the precarinal space measuring up to 1.0 cm. No bony lesions are identified. Cholelithiasis. Bloodwork and UA obtained. In the ED course the patient was given fluids, ceftriaxone, and azithromycin. Consult with Dr. Medrano (hospitalist) at 1709. She agrees to admit the patient for further evaluation. The patient is agreeable with this plan. - Diagnoses Provider Diagnoses: Fever, Cough, Lung mass, Shortness of breath - Physician Notifications Discussed Care Of Patient With: Megan Medrano Time Discussed With Above Provider: 17:09 Instructed by Provider To: Other - Consult with Dr. Medrano (hospitalist) at 1709. She agrees to admit the patient for further evaluation. Discharge - Sign-Out/Discharge Documenting (check all that apply): Patient Departure - Admit to [facility] Patient Received Moderate/Deep Sedation with Procedure: No - Discharge Plan Condition: Stable Disposition: ADMITTED TO [facility] Referrals: Jomar Dumont DO [Primary Care Provider] - - Attestation Statements Document Initiated by Scribe: Yes Documenting Scribe: Wendy Fields Provider For Whom Scribe is Documenting (Include Credential): Dr. Enzo Hassan MD Scribe Attestation: I, Wendy Fields, scribed for Dr. Enzo Hassan MD on 12/28/18 at 1723. Status of Scribe Document: Ready
[2018-12-28 14:46] LABS: ABS Basophils 0 10^3/ul (0-0.2); ABS Eosinophils 0.1 10^3/ul (0-0.6); ABS Lymphocytes 0.7 10^3/ul (1.0-4.8); ABS Monocytes 1.5 10^3/ul (0-0.8); ABS Neutrophils 12.5 10^3/ul (1.5-7.7); ABS Nucleated RBC 0 10^3/ul; Eosinophil % 0.9 %; Lymphocyte % 4.5 %; Nucleated Red Blood Cells % 0
[2018-12-28 15:20] LABS: Urine Appearance Clear; Urine Bacteria Absent (Absent); Urine Bilirubin Negative (Negative); Urine Blood Negative (Negative); Urine Color Amber; Urine Glucose Negative (Negative); Urine Ketones Negative (Negative); Urine Nitrite Negative (Negative); Urine Protein 1+(30 mg/dL) (Negative); Urine Red Blood Cell Trace(0-2/hpf) (Absent); Urine Specific Gravity 1.018 (1.010-1.030); Urine Squamous Epithelial Cell Present (Absent); Urine Urobilinogen Negative (Negative); Urine White Blood Cell Trace(0-5/hpf) (Absent)
[2018-12-28] MEDS ORDERED: Iodixanol* (CONTRAST) 320 MG/ML 100 ML SDV IV ONE (15:27)
[2018-12-28 15:28] LABS: Influenza A Molecular NEGATIVE (Negative); Influenza B Molecular NEGATIVE (Negative)
[2018-12-28] MEDS ORDERED: cefTRIAXone(*) 1 GM in NS 0.9% 50 ML* 50 ML IVPB ONE (16:28)
[2018-12-28] MEDS: NS 0.9% 1000 ML** 1,000 ML IV ONE ×2 (16:28→18:48)
[2018-12-28] MEDS ORDERED: Azithromycin 500 mg/250 ml NS 500 MG/250 ML BAG IVPB ONE (16:29)
[2018-12-28] MEDS ORDERED: cefTRIAXone(*) 1 GM ADVAN/BAG ONE (16:32)
[2018-12-28] MEDS ORDERED: Ondansetron INJ* 2 MG/ML VIAL IV PRN (17:09)
[2018-12-28] MEDS ORDERED: Benzonatate CAP* 100 MG PO PRN (17:09)
[2018-12-28 17:33] LABS: C Reactive Protein 179.71 mg/L (<8.01)
[2018-12-28 17:54] LABS: Total Iron Binding Capacity 204 mcg/dL (250-450); Transferrin 146 mg/dL (203-362)
[2018-12-28 17:55] LABS: % Iron Saturation 8 % (15-55); Iron < 17 ug/dL (50-212)
[2018-12-28 18:14] LABS: Ferritin 417.4 ng/mL (24-336)
[2018-12-28] MEDS: Acetaminophen TAB* 325 MG PO PRN (18:46)
[2018-12-28] MEDS ORDERED: NS 0.9% 1000 ML** 1,000 ML IV ONE (18:48)
[2018-12-28] MEDS ORDERED: oxyCODONE TAB* 5 MG TAB PO PRN (19:08)
[2018-12-28] MEDS ORDERED: oxyCODONE TAB* 5 MG TAB ONE (19:16)
[2018-12-28] MEDS: guaiFENesin ER TAB 600 MG PO SCH (20:14)
[2018-12-28 20:19] LABS: Troponin I 0.05 ng/mL (<0.04)
[2018-12-28] MEDS ORDERED: Metoprolol Tartrate IV* 1 MG/ML 5 ML VIAL IV ONE (20:25)
--- NOTE | 2018-12-28 20:43 | HP ---
CC: Dr. Dumont * HISTORY AND PHYSICAL: PRIMARY CARE PROVIDER: Dr. Dumont. ADDENDUM: The case was reviewed and discussed with CHARITY Wu. Mr. Dong is an 83-year-old gentleman with a past medical history that includes rheumatoid arthritis, on steroids; BPH, hypertension, hyperlipidemia, prostate CA, possible bullous pemphigoid who presented to the emergency room with complaints of malaise and shortness of breath. After reviewing his labs and imaging studies, I suspect the patient may have a lung malignancy with postobstructive pneumonia. The plan is to have him admitted, so we can continue to manage his infection and also pursue pulmonary consultation and probable biopsy for diagnosis. I am in agreement with current management. [id number]/CPS #: [id number] MTDD
[2018-12-28] MEDS: Metoprolol Tartrate TAB* 25 MG PO SCH (21:05)
[2018-12-28] MEDS: Heparin VIAL(*) 5000 UNITS/ML VIAL (FIVE THOUSAND) SUBCUT SCH (21:05)
--- NOTE | 2018-12-28 21:16 | HP ---
ATTENDING ADDENDUM NOW INCLUDED ON THIS REPORT CC: Dr. Jomar Dumont; Dr. Sailaja Blanco * ADMISSION HISTORY AND PHYSICAL: DATE OF ADMISSION: 12/28/18 PRIMARY CARE PROVIDER: Dr. Jomar Dumont. MY ATTENDING WHILE IN THE HOSPITAL: Dr. Melani Sifuentes.* (DICTATED BY CHARITY WINTERS) CONSULTING PULLER OUT: Dr. Sailaja Blanco. CHIEF COMPLAINT: Malaise, shortness of breath x3 days. HISTORY OF PRESENT ILLNESS: Mr. Dong is an 83-year-old male with a past medical history significant for coronary artery disease status post CT and CABG , heart failure with reduced ejection fraction and atypical skin reaction to influenza vaccine, previously diagnosed as bullous pemphigoid as well as rheumatoid arthritis who presents to the emergency department after feeling in his regular state of health. One week ago, the patient states he has chronic lower extremity edema and had not been tolerating torsemide very well due to frequent urination. The patient states; however, that he did not have any orthopnea, any dyspnea on exertion, any nocturia any greater than during the day , but he does have significant urinary frequency. The patient; however, states that he approximately 1 week ago started to feel weak like he had no appetite and no motivation to do anything. He attributed this to his torsemide. The patient has been having for a significant period of time decreasing appetite, but denies night sweats, fevers, chills. The patient on , felt particularly poorly, called Dr. Ivey and requested to stop his torsemide and was said this was okay. The patient had then developed significant right-sided chest pain, which was intermittently pleuritic, did not radiate. The patient has not had any cough. No hemoptysis. No sputum production. The patient has been having since this time chills with shaking, but no subjective fevers. The patient has been on prednisone for a long period of time related to his atypical skin reaction. The patient is currently on 5 mg every other day, but he takes it generally only when he remembers. The patient has not had any dizziness upon standing. The patient; however, on the day of admission came to the emergency department because his progressive shortness of breath reached to the point where he was unable to walk up a flight of stairs, which is normally no problem for him. He was only able to take 1 stair at a time. The patient denies chest pain. The patient denies increased swelling of legs. The patient has had no recent prolonged immobilization except for relative inactivity with his malaise. The patient has no pain in his legs. The patient has no history of blood clot. Due to concern for pneumonia and lung mass, we were asked to evaluate the patient for admission to the hospital. PAST MEDICAL HISTORY: 1. Coronary artery disease status post CT with CABG. 2. Bullous pemphigoid like reaction to flu shot. 3. Hypertension. 4. BPH. 5. Osteoarthritis. 6. Rheumatoid arthritis. 7. Heart failure, reduced ejection fraction, EF 50% to 55%. 8. Provoked upper GI bleed due to chronic steroid therapy. 9. Hyperlipidemia. 10. Anemia. PAST SURGICAL HISTORY: 1. CABG. 2. Hernia repair x2. MEDICATIONS: 1. Multivitamin 1 tab p.o. daily. 2. Vitamin D 400 units p.o. daily. 3. Tamsulosin 0.4 mg p.o. daily. 4. Lipitor 40 mg p.o. daily. 5. Nasalide 2 sprays both nares b.i.d. 6. Tylenol 325 mg p.o. q.6 hours as needed. 7. Prednisone 5 mg p.o. every other day. 8. Metoprolol tartrate 25 mg p.o. b.i.d. 9. Adenosylmethionine 40 mg p.o. q.a.m. 10. Pantoprazole 40 mg p.o. daily. ALLERGIES: INFLUENZA VACCINE. FAMILY HISTORY: The patient's mother of breast cancer and viral hepatitis from a transfusion. The patient's father of complications from stroke at age 85. The patient has a sister who had breast cancer. SOCIAL HISTORY: The patient quit smoking over 30 years ago. The patient smoked on and off from times he had been at high school to the point he quit. He is unable to quantify a pack year history. The patient drinks rare alcohol. The patient denies illicit drug use. The patient worked within the after high school and then worked for the [employer]. The patient can think of no specific exposure. The patient is and has 5 children. The patient's surrogate decision maker will be his daughters, Monserrat and Rina. REVIEW OF SYSTEMS: A 14-point review of systems was reviewed and negative except as above in the HPI. PHYSICAL EXAMINATION GENERAL: The patient is an 83-year-old male, who appears stated age, sitting comfortably in bed, in no acute distress. VITAL SIGNS: At the time of evaluation, temperature 100.7, pulse rate 94, respiratory rate 22, oxygen saturation 94% on room air, blood pressure 130/60. HEENT: Head: Normocephalic, atraumatic. Sclerae anicteric. No conjunctival injection. Nasal mucosa moist. Oral mucosa moist. No pharyngeal erythema, discharge, or exudate. NECK: Supple. No lymphadenopathy. No carotid bruit auscultated. No JVD. RESPIRATORY: Left lung clear to auscultation. Rhonchi heard in the right lower and middle lobes with slight expiratory wheezes. CARDIAC: Regular rate and rhythm. No clicks, murmurs, gallops, or rubs. Pulses 2+ in the bilateral dorsalis pedis, posterior tibial, and radial areas. ABDOMEN: Soft, nontender, nondistended. Bowel sounds present, normoactive in all 4 quadrants. No hepatosplenomegaly. No abdominal bruits auscultated. No hepatojugular reflux. GENITOURINARY: No suprapubic or CVA tenderness. NEURO: Cranial nerves II through XII intact. No focal deficits. Alert and oriented x3. PSYCHIATRIC: Pleasant and cooperative. SKIN: Rash in the left santiago, clearly demarcated with skin edema. Otherwise, clean, dry, intact, no rash. LABORATORY DATA: White blood cell count 14.8, hemoglobin 9.2, platelet count 494,000. D-dimer greater than 1050. Sodium 136, potassium 5.4, chloride 105, carbon dioxide 26, anion gap 5, BUN 24, creatinine 1.17, glucose 108. Lactic acid 1.6. Calcium 8.4. Bilirubin 0.3, AST 63, ALT 68, alkaline phosphatase 61. Troponin I 0.01. Protein 6.0. Albumin 2.9, globulin 3.1. Urine shows 1+ protein, squamous epithelial cells, and hyaline casts, serum alcohol less than 10, Influenza A/B negative. DIAGNOSTIC STUDIES: EKG shows normal sinus rhythm, no ST segment elevation or depression, type 1 A-V block, normal axis, poor R wave progression, no hypertrophy or enlargement, QTc of 434, rate of 99. Chest x-ray read as right basilar mass versus atelectasis. Chest CT read as solid appearing mass in the right middle lobe measuring 4.1 x 6.2 x 7.0 cm with area of low density, suspicious for neoplastic process, small mediastinal lymph node in the precarinal space measuring up to 1.0 cm. ASSESSMENT AND PLAN: Impression: Mr. Dong is an 83-year-old male with a past medical history significant for coronary artery disease, heart failure, reduced ejection fraction, hypertension, rheumatoid arthritis, and possible bullous pemphigoid who presents to the emergency department with 1 week of malaise and 3 days of worsening shortness of breath and right-sided chest pain who was found to have a right-sided lung mass and clinical symptoms of pneumonia. He will be admitted to the hospital for treatment of pneumonia and further evaluation of his lung mass. 1. Pneumonia. The patient has an elevated white blood cell count, shortness of breath, tachycardia, borderline hypotension, though the patient lacks a cough. The patient also has fever. The patient has a clinical picture concerning for pneumonia. This pneumonia very well may be postobstructive from a preexisting lung mass. The patient's lung mass is not present on chest x-ray from 2015. The patient received ceftriaxone and azithromycin in the emergency department. The patient will be continued on these. The patient does not appear overly fluid overloaded. The patient's torsemide will be continued to be held, but there will not be further diuresis given the patient's active infection. The patient's chest x-ray and CTA did not show signs of active fluid overload. The patient has asymmetrical lower extremity edema, but he states this is chronic. The patient has an elevated D-dimer. The patient had a chest CT with contrast without a protocol for pulmonary embolism. When the patient is available, is able to have a CT, likely tomorrow after the contrast has cleared out of his system, a CT should be performed to rule out pulmonary embolism as the patient is high risk given his likely malignancy, relative immobilization, and currently swollen legs. The patient meets sepsis criteria with an elevated white blood cell count and tachycardia with pneumonia. The patient received 1 L of fluid in the emergency department; however, given concerns for heart failure with reduced ejection fraction or a tenuous respiratory status, will not complete 30 mL/kg bolus. The patient had a normal lactic acid. 2. Lung mass. The patient will be evaluated by Pulmonology with consideration for bronchoscopy and biopsy of the patient's lung mass if available. The differential for this lung mass does include necrotic area associated with pulmonary embolism or primary lung mass, though they believe they are less likely given the radiographic appearance of the patient's mass. 3. Hypertension. The patient is currently normotensive. Continue the patient' s metoprolol. The patient is on no other medications for this for long-term management. The patient is to follow up with Cardiology for consideration for JUANCARLOS or ARB therapy. 4. Rheumatoid arthritis, history of bullous pemphigoid. Continue the patient on 5 mg prednisone daily. We will not increase the stress doses at this time due to normotensive state. 5. Heart failure, reduced ejection fraction. The patient has lower extremity edema, which he states is at its baseline. The patient has an elevated BNP, also not consistent with previous readings. Except for lower extremity edema, the patient does not appear to be clinically fluid overloaded. We will not diurese at this time. Diuresis may be needed as the patient's clinical syndrome develops. We will update the patient's echocardiogram at this time. 6. Coronary artery disease. Continue the patient's statin. The patient does not have ischemic changes on his EKG. The patient had a history of upper GI bleed on aspirin and Plavix, so these are held. The patient has no ischemic changes. Negative troponins. We will trend these x3 and repeat an EKG in the morning. 7. Anemia. The patient has anemia of unclear cause. The patient also recently had iron studies in 2017, which were unremarkable as well as a normal B12 and folate in 2017. We will repeat iron studies at this time. 8. FEN. The patient will have a heart healthy diet, caffeine okay. 9. Disposition. The patient will be admitted inpatient. 10. DVT prophylaxis. Heparin subcu. 11. Code status. The patient will be a full code. TIME SPENT: Approximately 60 minutes were spent on this admission, 30 of which was spent [id number] with the patient obtaining history and physical and discussing treatment plan. This plan has been discussed with my attending, Dr. Melani Sifuentes, she is in agreement. CHARITY WINTERS ATTENDING ADDENDUM: The case was reviewed and discussed with CHARITY Winters. Mr. Dong is an 83-year-old gentleman with a past medical history that includes rheumatoid arthritis, on steroids; BPH, hypertension, hyperlipidemia, prostate CA, possible bullous pemphigoid who presented to the emergency room with complaints of malaise and shortness of breath. After reviewing his labs and imaging studies, I suspect the patient may have a lung malignancy with postobstructive pneumonia. The plan is to have him admitted, so we can continue to manage his infection and also pursue pulmonary consultation and probable biopsy for diagnosis. I am in agreement with current management. MELANI Sifuentes MD [id number]/CPS #: [id number]/CPS #: [id number] LIZA
[2018-12-29 02:36] LABS: Troponin I 0.23 ng/mL (<0.04)
[2018-12-29] MEDS: Heparin VIAL(*) 5000 UNITS/ML VIAL (FIVE THOUSAND) SUBCUT SCH ×3 (05:32→19:42)
[2018-12-29 06:29] LABS: Hematocrit 29 % (36-46); Hemoglobin 9.5 g/dL (14.0-18.0); Mean Corpuscular HGB Conc 33 g/dL (31-36); Mean Corpuscular Hemoglobin 28 pg (27-31); Mean Corpuscular Volume 85 fL (80-94); Mean Platelet Volume 6.7 fL (7.4-10.4); Platelet Count 544 10^3/uL (150-450); Red Blood Count 3.45 10^6 /uL (4.18-5.48); Red Cell Distribution Width 15 % (10.5-15); White Blood Count 21.6 10^3/uL (3.5-10.8)
[2018-12-29 06:51] LABS: Albumin 2.7 g/dL (3.2-5.2); Albumin/Globulin Ratio 0.9 (1-3); BUN/Creatinine Ratio 21.3 (8-20); Calcium 8.2 mg/dL (8.6-10.3); EGFR African American 92.3 (>60); EGFR Non-African American 76.3 (>60); Globulin 2.9 g/dL (2-4); Magnesium 2.1 mg/dL (1.9-2.7); Potassium 4.3 mmol/L (3.5-5.0); Total Bilirubin 0.5 mg/dL (0.2-1.0); Total Protein 5.6 g/dL (6.4-8.9)
[2018-12-29 06:55] LABS: ABS Basophils 0.2 10^3/ul (0-0.2); ABS Eosinophils 0.3 10^3/ul (0-0.6); ABS Lymphocytes 0.3 10^3/ul (1.0-4.8); ABS Monocytes 0.5 10^3/ul (0-0.8); ABS Neutrophils 20.3 10^3/ul (1.5-7.7); ABS Nucleated RBC 0 10^3/ul; Eosinophil % 1.4 %; Lymphocyte % 1.5 %; Nucleated Red Blood Cells % 0; Troponin I 0.17 ng/mL (<0.04)
[2018-12-29] MEDS: Cholecalciferol TAB* 400 UNIT PO SCH (09:11)
[2018-12-29] MEDS: Atorvastatin* 20 MG TAB PO SCH (09:11)
[2018-12-29] MEDS: Pantoprazole TAB * 40 MG TAB PO SCH (09:12)
[2018-12-29] MEDS: guaiFENesin ER TAB 600 MG PO SCH ×2 (09:12→20:19)
[2018-12-29] MEDS: Tamsulosin CAP* 0.4 MG PO SCH (09:12)
[2018-12-29] MEDS: Metoprolol Tartrate TAB* 25 MG PO SCH ×2 (09:13→20:33)
[2018-12-29] MEDS: predniSONE TAB* 5 MG PO SCH (09:14)
[2018-12-29] MEDS ORDERED: Perflutren Lipid Microsphere* 3 ML VIAL ONE (09:52)
--- NOTE | 2018-12-29 10:10 | CONS ---
PULMONARY CONSULTATION REPORT: DATE OF CONSULT: 12/29/18 CONSULTATION REQUESTED BY: CHARITY Wu. REASON FOR CONSULT: Evaluation of abnormal CT chest. HISTORY OF PRESENT ILLNESS: The patient is an 83-year-old male, poor historian , with a history of coronary artery disease, status post CABG, bullous pemphigoid, hypertension, BPH, rheumatoid arthritis. The patient was sent in for evaluation of shortness of breath and malaise for 3 days. The patient reports that he has chronic lower extremity edema since he had pemphigoid after reaction to flu shot. He has been having issues with lower extremity edema and was started on torsemide. He has not been tolerating torsemide due to frequent urination. He was having poor appetite and generalized malaise. He attributed the symptoms to torsemide. 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 The patient presents for evaluation of right-sided chest pain that was intermittently pleuritic. He has a history of coronary artery disease, status post SC and CABG in the past. He presents for evaluation of pleuritic chest pain. The patient reports cough productive of dark phlegm. Denies hemoptysis. Reports chills, but denies fevers. Reports night sweats. The patient is a former smoker, quit long time back. Denies dizziness. The patient denies history of shortness of breath or orthopnea at baseline. He has been having difficulty walking on flight of stairs, which concerned him. The patient reports chronic lower extremity swelling especially on the left lower extremity since his diagnosis of bullous pemphigoid. Further evaluation in the emergency room included chest x-rays and CT scan of the chest. I personally reviewed chest x-ray and CT scan of the chest. The patient with evidence of airspace disease versus mass lesion in the right lung zone. CT scan of the chest was also personally reviewed by me and with the patient today - the patient with evidence of solid-appearing lung mass in right middle lobe. The patient also with right pleural effusion. Evidence of enlarged right pretracheal lymph node. No other significant mediastinal or hilar adenopathy was readily visible. The patient was initiated on broad-spectrum antibiotics for presumed pneumonia. He was on 5 mg of prednisone at home chronically for his bullous pemphigoid, which was continued. Pulmonary consultation was requested for evaluation of right lung mass. The patient seen and examined at bedside. Denies burning while urination. Has urinary frequency increased, which he attributes to torsemide. Denies headaches, dizziness. Right-sided chest pain is resolved now. Denies any shortness of breath while lying down. Has cough and intermittent dark phlegm. PAST MEDICAL HISTORY: 1. Coronary artery disease, status post SC and CABG. 2. Bullous pemphigoid, reaction to flu shot. 3. Hypertension. 4. BPH. 5. Osteoarthritis. 6. Rheumatoid arthritis. 7. Heart failure, reduced ejection fraction 50% to 55%. 8. Provoked upper GI bleed due to chronic steroid therapy. 9. Dyslipidemia. 10. Anemia. PAST SURGICAL HISTORY: 1. CABG. 2. Hernia repair x2. MEDICATIONS: 1. Multivitamin. 2. Vitamin D. 3. Flomax. 4. Lipitor. 5. Nasalide. 6. Tylenol. 7. Prednisone. 8. Metoprolol. 9. Adenosylmethionine . 10. Pantoprazole. ALLERGIES: INFLUENZA VACCINE. FAMILY HISTORY: The patient's mother of breast cancer and viral hepatitis from a transfusion reaction. Father of stroke at age 85. The patient has a sister who has breast cancer. SOCIAL HISTORY: Quit smoking 30 years ago. Smoked on and off prior to that, unable to quantify pack year history. Rare alcohol intake. Denies drug abuse. REVIEW OF SYSTEMS: All 14 systems reviewed and as per HPI. PHYSICAL EXAM: The patient is in bed, in no apparent distress. Vital Signs: Temperature 98.2, pulse 94 beats per minute, respiratory rate 16 per minute, O2 sat 94% on room air, blood pressure 119/54. HEENT: Pupils equal, reactive to light. Mucous membranes moist. Lungs: Diminished air entry in the mid lung zone. No wheeze on auscultation. Cardiovascular: S1, S2 present. No murmurs , gallops, or rubs. Abdomen: Soft, nontender, nondistended, bowel sounds present. Extremities: Normal range of motion. Skin: No rash. Neuro: Alert, awake, oriented x3. No focal deficit. DIAGNOSTIC STUDIES/LAB DATA: WBC count 21.6, hemoglobin 9.5, hematocrit 29, platelet count 544. Sodium 138, potassium 4.3, chloride 108, bicarb 23, BUN 20, creatinine 0.9. Troponins elevated, trending down. Chest x-ray and CT scan of the chest as described above in the HPI. IMPRESSION AND RECOMMENDATIONS: 83-year-old male with prior smoking history, admitted with chest pain, shortness of breath, found to have right lung mass. 1. Lung mass, concern for malignancy. 2. Postobstructive pneumonia. The patient started on broad-spectrum antibiotics. Afebrile, was spiking temperatures on admission. Elevated white count, consistent with postobstructive pneumonia. Lung mass concerning for malignancy. Will schedule the patient for bronchoscopy and biopsy. The patient is high risk given extensive smoking history, for anesthesia. Continue with antibiotics. Follow up sputum culture. Thank you for allowing me to participate in the care of your patient. Will follow up with you. [id number]/[facility] [place] #: [id number] LIZA
[2018-12-29] MEDS: cefTRIAXone(*) 1 GM in NS 0.9% 50 ML* 50 ML IVPB SCH (13:53)
--- NOTE | 2018-12-29 15:01 | ECHO ---
Patient: YESENIA DEL REAL [facility] Rec#: [id number] : 1935 Date: 12/29/2018 Age: 83y Height: 175 cm / 68.9 in Weight: 77 kg / 169.7 lbs Sex: M BSA: 1.92 Room#: [facility] Type: Inpatient Referring: [facility] Reading: Cliff Kramer MD Metallurgical Lab Technician: Bridget Romano RDCS CC: Jomar Dumont MD CC: Jesus Alberto Ivey DO CC: JARED MCGREGOR Transthoracic Echocardiogram Indication: Congestive heart failure BP: 119/54 HR: 76 Rhythm: NSR with PACs Findings History: CAD with AL and 3 vessel CABG, CHF, HTN, HLD, GI bleed. Technical Comments: The study quality is fair. The study is technically limited due to poor apical windows. Completed at 1110. Left Ventricle: The left ventricular chamber size is normal. There is no left ventricular hypertrophy. There is global hypokinesis of the left ventricle with minor regional variation. There is mildly decreased left ventricular systolic function. The estimated ejection fraction is 40-45%. Post surgical hypokinesis of the interventricular septum is observed consistent with coronary artery bypass. There is septal flattening of the interventricular septum consistent with right ventricular volume or pressure overload. Abnormal left ventricular diastolic function is observed. There is an E to A reversal in the mitral valve flow pattern suggestive of diastolic dysfunction. Left Atrium: The left atrial chamber size is normal. Right Ventricle: Moderator Band present. The right ventricle is mild to moderately dilated. The right ventricular global systolic function is low normal. Right Atrium: The right atrium is moderately dilated. Aortic Valve: The aortic valve is trileaflet. The aortic valve leaflets are moderately thickened. Systolic excursion of the aortic valve cusps is reduced. There is no evidence of aortic regurgitation. There is borderline aortic stenosis present. The mean gradient of the aortic valve is 6 mmHg. The peak instantaneous gradient of the aortic valve is 10 mmHg. The aortic valve area, by peak velocities, is calculated at 2 cm2. The aortic valve area, by VTI's, is calculated at 1.7 cm2. Mitral Valve: There is mitral annular calcification. The mitral valve leaflets are mildly thickened. There is trace to mild mitral regurgitation. There is no evidence of mitral stenosis. Tricuspid Valve: The tricuspid valve leaflets are normal. There is trace tricuspid regurgitation. Unable to estimate the right ventricular systolic pressure. There is no tricuspid stenosis. Pulmonic Valve: The pulmonic valve appears normal. There is a trace pulmonic regurgitation. There is no pulmonic stenosis. Pericardium: There is no significant pericardial effusion. Aorta: There is no dilatation of the ascending aorta. There is no dilatation of the aortic arch. The aortic root is normal in size. Pulmonary Artery: The main pulmonary artery appears normal. Venous: The inferior vena cava appears normal in size. There is a greater than 50% respiratory change in the inferior vena cava dimension. Contrast: Definity was used to optimize study. 3 mL of diluted Definity were utilized. Intravenous contrast was used to enhance endocardial border definition. Summary: There are no significant changes when compared to the previous study done on 05/16/15 Conclusions There is global hypokinesis of the left ventricle with minor regional variation. There is mildly decreased left ventricular systolic function. The estimated ejection fraction is 40-45%. Post surgical hypokinesis of the interventricular septum is observed consistent with coronary artery bypass. There is septal flattening of the interventricular septum consistent with right ventricular volume or pressure overload. The right ventricular global systolic function is low normal. The aortic valve leaflets are moderately thickened. There is borderline aortic stenosis present. The mean gradient of the aortic valve is 6 mmHg. There is no evidence of aortic regurgitation. There is trace to mild mitral regurgitation. There is trace tricuspid regurgitation. Unable to estimate the right ventricular systolic pressure. There is no significant pericardial effusion. There are no significant changes when compared to the previous study done on 05/16/15 Measurements Name Value Normal Range RVIDd (AP) 2D 4.3 cm (0.9 - 2.6) RVDdMajor (2D) 4.9 cm (2.2 - 4.4) RAd ISD 4CH 5.6 cm (3.4 - 4.9) RA (A4C)W 5.1 cm (2.9 - 4.6) IVSd (2D) 0.9 cm (0.6 - 1) LVPWd (2D) 0.9 cm (0.6 - 1) LVIDd (2D) 4.1 cm (3.6 - 5.4) LVIDs (2D) 3.3 cm - LV FS (2D) 20 % (25 - 45) Aortic Annulus 2 cm (1.4 - 2.6) Ao root diameter (2D) 3.2 cm (2.1 - 3.5) Ascending Ao 3.1 cm (2.1 - 3.4) Aortic arch 2.3 cm (1.8 - 3.4) LA dimension (AP) 2D 3.6 cm (2.3 - 3.8) LAd ISD 4CH 5.3 cm (2.9 - 5.3) LA ISD 4CH W 4 cm (2.5 - 4.5) Name Value Normal Range LA ESV BP (A/L) index 37 ml/m2 - Name Value Normal Range MV E-wave Vmax 0.7 m/sec - MV deceleration time 295 msec - MV A-wave Vmax 1.1 m/sec - MV E:A ratio 0.7 ratio - LV septal e' Vmax 0.08 m/sec - LV lateral e' Vmax 0.15 m/sec - LV E:e' septal ratio 8.8 ratio - LV E:e' lateral ratio 4.7 ratio - Name Value Normal Range AV Vmax 1.6 m/sec - AV VTI 29 cm - AV peak gradient 10 mmHg - AV mean gradient 6 mmHg - LVOT diameter 2 cm - LVOT Vmax 1 m/sec - LVOT VTI 16 cm - LVOT peak gradient 4 mmHg - LVOT mean gradient 2 mmHg - DOI (VTI) 0.55 ratio - ERNESTINE (continuity Vmax) 2 cm2 - ERNESTINE (continuity VTI) 1.7 cm2 - GUNNAR Vmax 0.8 m/sec - Name Value Normal Range IVC diameter 1.6 cm - Name Value Normal Range PV Vmax 0.9 m/sec - PV peak gradient 3 mmHg -
[2018-12-29] MEDS: Azithromycin IV(*) 250 MG in NS 0.9% 250 ML* 250 ML IVPB SCH (16:15)
[2018-12-29] MEDS: Acetaminophen TAB* 325 MG PO PRN (16:59)
--- NOTE | 2018-12-29 17:29 | PN ---
Subjective Date of Service: 12/29/18 Interval History: Pt seen and examined. Meds and labs reviewed. CC: N/A ROS: Denied OGDEN/dizziness, F/C, N/V, CP, SOB, increased cough, sputum production , abd pain, diarrhea, constipation, dysuria, myalgias, arthralgias, throat pain , and new skin lesions. The rest of the 14 point ROS are unremarkable. PHYSICAL EXAM: GEN APPEARANCE: Awake, not in acute distress HEENT: NC/AT, PERRLA, moist oral mucosa, (-) throat erythema NECK: Soft, supple, (-) cervical LAD, (-)JVD HEART: S1S2 WNL, RRR, No MRG CHEST: CTA, BL, GAE, No W/R/R ABD: Soft, ND/NT, NABS 4x Q EXT: No C/C/E SKIN: Warm to touch PSYCH: No active psychosis, hallucinations, depression, SI/HI Objective Active Medications: Acetaminophen (Tylenol Tab*) 650 mg PO Q6H PRN PRN Reason: FEVER/PAIN Last Admin: 12/29/18 16:59 Dose: 650 mg Atorvastatin Calcium (Lipitor*) 20 mg PO DAILY [facility] Last Admin: 12/29/18 09:11 Dose: 20 mg Benzonatate (Tessalon Cap*) 100 mg PO BID PRN PRN Reason: COUGH Cholecalciferol (Vitamin D Tab*) 400 unit PO DAILY [facility] Last Admin: 12/29/18 09:11 Dose: 400 unit Guaifenesin (Mucinex*) 1,200 mg PO BID [facility] Last Admin: 12/29/18 09:12 Dose: 1,200 mg Heparin Sodium (Porcine) (Heparin Vial(*)) 5,000 units SUBCUT Q12H [facility] Azithromycin 250 mg/ Sodium (Chloride) 250 mls @ 250 mls/hr IVPB Q24H [facility] Last Admin: 12/29/18 16:15 Dose: 250 mls/hr Ceftriaxone Sodium 1 gm/ (Sodium Chloride) 50 mls @ 200 mls/hr IVPB Q24H [facility] Last Admin: 12/29/18 13:53 Dose: 200 mls/hr Metoprolol Tartrate (Lopressor Tab*) 25 mg PO BID [facility] Last Admin: 12/29/18 09:13 Dose: 25 mg Ondansetron HCl (Zofran Inj*) 4 mg IV Q6H PRN PRN Reason: NAUSEA Oxycodone HCl (Roxycodone Tab*) 5 mg PO Q6H PRN PRN Reason: PAIN Last Admin: 12/28/18 19:17 Dose: 5 mg Pantoprazole Sodium (Protonix Tab*) 40 mg PO DAILY [facility] Last Admin: 12/29/18 09:12 Dose: 40 mg Prednisone (Deltasone Tab*) 5 mg PO DAILY [facility] Last Admin: 12/29/18 09:14 Dose: Not Given Tamsulosin HCl (Flomax Cap*) 0.4 mg PO DAILY [facility] Last Admin: 12/29/18 09:12 Dose: 0.4 mg Oxygen Devices in Use Now: None Result Diagrams: 12/29/18 06:09 12/29/18 06:09 Additional Lab and Data: Lab Results 12/28/18 12/28/18 Range/Units 14:15 14:15 WBC 14.8 H (3.5-10.8) 10^3/uL RBC 3.31 L (4.18-5.48) 10^6 /uL Hgb 9.2 L (14.0-18.0) g/dL Hct 28 L (36-46) % MCV 85 (80-94) fL MCH 28 (27-31) pg MCHC 33 (31-36) g/dL RDW 15 (10.5-15) % Plt Count 497 H (150-450) 10^3/uL MPV 6.6 L (7.4-10.4) fL Neut % (Auto) Pending Lymph % (Auto) Pending Barry % (Auto) Pending Eos % (Auto) Pending Baso % (Auto) Pending Absolute Neuts (auto) Pending Absolute Lymphs (auto) Pending Absolute Monos (auto) Pending Absolute Eos (auto) Pending Absolute Basos (auto) Pending Absolute Nucleated RBC Pending Nucleated RBC % Pending Lactic Acid 1.6 (0.5-2.0) mmol/L Microbiology and Other Data: Microbiology 12/28/18 15:07 Urine Culture - Final Urine 12/28/18 15:07 Legionella Urinary Antigen - Final Urine Negative Legionella Antigen Streptococcus pneumoniae Ag Screen - Final Negative S. pneumo Antigen Assess/Plan/Problems-Billing Assessment: - Patient Problems (1) PNA (pneumonia) Current Visit: Yes Status: Acute Code(s): J18.9 - PNEUMONIA, UNSPECIFIED ORGANISM SNOMED Code(s): 562230262 Comment: -With mild sepsis; likely cause of mildly elevated troponins -Continue Rocephin and Azithromycin -Leukocytosis increased could be lag from acute phase -Continue to follow Cx (2) Lung mass Current Visit: Yes Status: Acute Code(s): R91.8 - OTHER NONSPECIFIC ABNORMAL FINDING OF LUNG FIELD SNOMED Code(s): 784229498 Comment: -D/W Dr. Blanco who mentions pt is scheduled for bronchoscopy on January 07, Saturday and will defer (3) HTN (hypertension) Current Visit: Yes Status: Acute Code(s): I10 - ESSENTIAL (PRIMARY) HYPERTENSION SNOMED Code(s): 29088735 Comment: -Well-controlled -Continue Metoprolol (4) BPH (benign prostatic hypertrophy) Current Visit: No Status: Acute Code(s): N40.0 - BENIGN PROSTATIC HYPERPLASIA WITHOUT LOWER URINRY TRACT SYMP SNOMED Code(s): 044295625 Comment: -Continue Tamsulosin (5) DVT prophylaxis Current Visit: Yes Status: Acute Code(s): NFU1154 - SNOMED Code(s): 813497689 Comment: -Will change frequency of Heparin SQ to Q12 given advanced age Status and Disposition: -Continue to follow Cx -As above
[2018-12-30] MEDS: Heparin VIAL(*) 5000 UNITS/ML VIAL (FIVE THOUSAND) SUBCUT SCH ×2 (01:56→15:18)
[2018-12-30 06:27] LABS: ABS Basophils 0 10^3/ul (0-0.2); ABS Eosinophils 0.6 10^3/ul (0-0.6); ABS Lymphocytes 0.3 10^3/ul (1.0-4.8); ABS Monocytes 0.9 10^3/ul (0-0.8); ABS Neutrophils 16.8 10^3/ul (1.5-7.7); ABS Nucleated RBC 0 10^3/ul; Hematocrit 25 % (36-46); Hemoglobin 8.2 g/dL (14.0-18.0); Lymphocyte % 1.7 %; Mean Corpuscular HGB Conc 32 g/dL (31-36); Mean Corpuscular Hemoglobin 27 pg (27-31); Mean Corpuscular Volume 84 fL (80-94); Mean Platelet Volume 6.6 fL (7.4-10.4); Nucleated Red Blood Cells % 0; Platelet Count 481 10^3/uL (150-450); Red Blood Count 3.02 10^6 /uL (4.18-5.48); Red Cell Distribution Width 15 % (10.5-15); White Blood Count 18.6 10^3/uL (3.5-10.8)
[2018-12-30 06:58] LABS: Albumin 2.3 g/dL (3.2-5.2); Albumin/Globulin Ratio 0.9 (1-3); BUN/Creatinine Ratio 19.6 (8-20); Calcium 7.8 mg/dL (8.6-10.3); EGFR Non-African American 73.6 (>60); Globulin 2.6 g/dL (2-4); Potassium 4.1 mmol/L (3.5-5.0); Total Bilirubin 0.4 mg/dL (0.2-1.0); Total Protein 4.9 g/dL (6.4-8.9)
[2018-12-30] MEDS: guaiFENesin ER TAB 600 MG PO SCH ×2 (09:41→20:21)
[2018-12-30] MEDS: Cholecalciferol TAB* 400 UNIT PO SCH (09:42)
[2018-12-30] MEDS: predniSONE TAB* 5 MG PO SCH (09:42)
[2018-12-30] MEDS: Metoprolol Tartrate TAB* 25 MG PO SCH ×3 (09:43→20:20)
[2018-12-30] MEDS: Pantoprazole TAB * 40 MG TAB PO SCH (09:44)
[2018-12-30] MEDS: Atorvastatin* 20 MG TAB PO SCH (09:44)
[2018-12-30] MEDS: Tamsulosin CAP* 0.4 MG PO SCH (09:44)
[2018-12-30] MEDS: cefTRIAXone(*) 1 GM in NS 0.9% 50 ML* 50 ML IVPB SCH (15:18)
[2018-12-30] MEDS: Azithromycin IV(*) 250 MG in NS 0.9% 250 ML* 250 ML IVPB SCH (15:57)
--- NOTE | 2018-12-30 18:30 | PN ---
Subjective Date of Service: 12/30/18 Interval History: Pt seen and examined. Meds and labs reviewed. CC: Pt feels weak/easy fatigability ROS: Denied OGDEN/dizziness, F/C, N/V, CP, SOB, increased cough, sputum production , abd pain, diarrhea, constipation, dysuria, myalgias, arthralgias, throat pain , and new skin lesions. The rest of the 14 point ROS are unremarkable. PHYSICAL EXAM: GEN APPEARANCE: Awake, not in acute distress HEENT: NC/AT, PERRLA, moist oral mucosa, (-) throat erythema NECK: Soft, supple, (-) cervical LAD, (-)JVD HEART: S1S2 WNL, RRR, No MRG CHEST: CTA, BL, GAE, No W/R/R ABD: Soft, ND/NT, NABS 4x Q EXT: No C/C/E SKIN: Warm to touch PSYCH: No active psychosis, hallucinations, depression, SI/HI Objective Active Medications: Acetaminophen (Tylenol Tab*) 650 mg PO Q6H PRN PRN Reason: FEVER/PAIN Last Admin: 12/29/18 16:59 Dose: 650 mg Atorvastatin Calcium (Lipitor*) 20 mg PO DAILY [facility] Last Admin: 12/30/18 09:44 Dose: 20 mg Benzonatate (Tessalon Cap*) 100 mg PO BID PRN PRN Reason: COUGH Cholecalciferol (Vitamin D Tab*) 400 unit PO DAILY [facility] Last Admin: 12/30/18 09:42 Dose: 400 unit Guaifenesin (Mucinex*) 1,200 mg PO BID [facility] Last Admin: 12/30/18 09:41 Dose: 1,200 mg Heparin Sodium (Porcine) (Heparin Vial(*)) 5,000 units SUBCUT Q12H [facility] Last Admin: 12/30/18 15:18 Dose: 5,000 units Azithromycin 250 mg/ Sodium (Chloride) 250 mls @ 250 mls/hr IVPB Q24H [facility] Last Admin: 12/30/18 15:57 Dose: 250 mls/hr Ceftriaxone Sodium 1 gm/ (Sodium Chloride) 50 mls @ 200 mls/hr IVPB Q24H [facility] Last Admin: 12/30/18 15:18 Dose: 200 mls/hr Metoprolol Tartrate (Lopressor Tab*) 25 mg PO BID [facility] Last Admin: 12/30/18 11:43 Dose: Not Given Ondansetron HCl (Zofran Inj*) 4 mg IV Q6H PRN PRN Reason: NAUSEA Oxycodone HCl (Roxycodone Tab*) 5 mg PO Q6H PRN PRN Reason: PAIN Last Admin: 12/28/18 19:17 Dose: 5 mg Pantoprazole Sodium (Protonix Tab*) 40 mg PO DAILY [facility] Last Admin: 12/30/18 09:44 Dose: 40 mg Prednisone (Deltasone Tab*) 5 mg PO DAILY [facility] Last Admin: 12/30/18 09:42 Dose: 5 mg Tamsulosin HCl (Flomax Cap*) 0.4 mg PO DAILY [facility] Last Admin: 12/30/18 09:44 Dose: 0.4 mg Vital Signs - 8 hr 12/30/18 12/30/18 12/30/18 10:36 11:10 16:14 Temperature 98.3 F 99.7 F Pulse Rate 103 80 Respiratory 16 20 Rate Blood Pressure 102/48 110/51 106/44 (mmHg) O2 Sat by Pulse 94 97 Oximetry Oxygen Devices in Use Now: None Result Diagrams: 12/30/18 06:09 12/30/18 06:09 Additional Lab and Data: Lab Results 12/28/18 12/28/18 Range/Units 14:15 14:15 WBC 14.8 H (3.5-10.8) 10^3/uL RBC 3.31 L (4.18-5.48) 10^6 /uL Hgb 9.2 L (14.0-18.0) g/dL Hct 28 L (36-46) % MCV 85 (80-94) fL MCH 28 (27-31) pg MCHC 33 (31-36) g/dL RDW 15 (10.5-15) % Plt Count 497 H (150-450) 10^3/uL MPV 6.6 L (7.4-10.4) fL Neut % (Auto) Pending Lymph % (Auto) Pending Charlton % (Auto) Pending Eos % (Auto) Pending Baso % (Auto) Pending Absolute Neuts (auto) Pending Absolute Lymphs (auto) Pending Absolute Monos (auto) Pending Absolute Eos (auto) Pending Absolute Basos (auto) Pending Absolute Nucleated RBC Pending Nucleated RBC % Pending Lactic Acid 1.6 (0.5-2.0) mmol/L Microbiology and Other Data: Microbiology 12/28/18 15:07 Urine Culture - Final Urine 12/28/18 15:07 Legionella Urinary Antigen - Final Urine Negative Legionella Antigen Streptococcus pneumoniae Ag Screen - Final Negative S. pneumo Antigen Assess/Plan/Problems-Billing Assessment: - Patient Problems (1) PNA (pneumonia) Current Visit: Yes Status: Acute Code(s): J18.9 - PNEUMONIA, UNSPECIFIED ORGANISM SNOMED Code(s): 671851583 Comment: -With mild sepsis; likely cause of mildly elevated troponins -Continue Rocephin and Azithromycin -Leukocytosis increased could be lag from acute phase -Continue to follow CxBlood Cx (-)x2 days (2) Lung mass Current Visit: Yes Status: Acute Code(s): R91.8 - OTHER NONSPECIFIC ABNORMAL FINDING OF LUNG FIELD SNOMED Code(s): 773804867 Comment: -D/W Dr. Blanco who mentions pt is scheduled for bronchoscopy on January 07, Saturday and will defer (3) HTN (hypertension) Current Visit: Yes Status: Acute Code(s): I10 - ESSENTIAL (PRIMARY) HYPERTENSION SNOMED Code(s): 09120886 Comment: -Well-controlled -Continue Metoprolol (4) BPH (benign prostatic hypertrophy) Current Visit: No Status: Acute Code(s): N40.0 - BENIGN PROSTATIC HYPERPLASIA WITHOUT LOWER URINRY TRACT SYMP SNOMED Code(s): 343656916 Comment: -Continue Tamsulosin (5) Easy fatigability Current Visit: Yes Status: Acute Code(s): R53.83 - OTHER FATIGUE SNOMED Code(s): 831290625 Comment: -Check TSH -Possibly due to above findings -Will ask PT to eval (6) DVT prophylaxis Current Visit: Yes Status: Acute Code(s): TCW1936 - SNOMED Code(s): 734426770 Comment: -Will change frequency of Heparin SQ to Q12 given advanced age Status and Disposition: -Continue to follow Cx -PT to eval
[2018-12-31] MEDS: Heparin VIAL(*) 5000 UNITS/ML VIAL (FIVE THOUSAND) SUBCUT SCH ×2 (02:03→14:11)
[2018-12-31 06:50] LABS: ABS Basophils 0.1 10^3/ul (0-0.2); ABS Eosinophils 0.6 10^3/ul (0-0.6); ABS Lymphocytes 0.5 10^3/ul (1.0-4.8); ABS Monocytes 0.7 10^3/ul (0-0.8); ABS Neutrophils 12.1 10^3/ul (1.5-7.7); ABS Nucleated RBC 0 10^3/ul; Eosinophil % 4.3 %; Hematocrit 25 % (36-46); Hemoglobin 8.1 g/dL (14.0-18.0); Lymphocyte % 3.2 %; Mean Corpuscular HGB Conc 33 g/dL (31-36); Mean Corpuscular Hemoglobin 27 pg (27-31); Mean Corpuscular Volume 84 fL (80-94); Mean Platelet Volume 6.5 fL (7.4-10.4); Nucleated Red Blood Cells % 0; Platelet Count 503 10^3/uL (150-450); Red Blood Count 2.97 10^6 /uL (4.18-5.48); Red Cell Distribution Width 15 % (10.5-15)
[2018-12-31 07:06] LABS: Albumin 2.4 g/dL (3.2-5.2); Albumin/Globulin Ratio 0.9 (1-3); BUN/Creatinine Ratio 21.6 (8-20); Calcium 8.1 mg/dL (8.6-10.3); EGFR African American 99.6 (>60); EGFR Non-African American 82.3 (>60); Globulin 2.6 g/dL (2-4); Magnesium 2.2 mg/dL (1.9-2.7); Phosphorus 2.8 mg/dL (2.5-5.0); Potassium 3.9 mmol/L (3.5-5.0); Total Bilirubin 0.2 mg/dL (0.2-1.0)
[2018-12-31 07:34] LABS: TSH (Thyroid Stimulating Horm) 5.21 mcIU/mL (0.34-5.60)
[2018-12-31] MEDS: Acetaminophen TAB* 325 MG PO PRN (09:14)
[2018-12-31] MEDS: Cholecalciferol TAB* 400 UNIT PO SCH (10:49)
[2018-12-31] MEDS: predniSONE TAB* 5 MG PO SCH (10:49)
[2018-12-31] MEDS: guaiFENesin ER TAB 600 MG PO SCH (10:49)
[2018-12-31] MEDS: Atorvastatin* 20 MG TAB PO SCH (10:49)
[2018-12-31] MEDS: Pantoprazole TAB * 40 MG TAB PO SCH (10:50)
[2018-12-31] MEDS: Metoprolol Tartrate TAB* 25 MG PO SCH (10:50)
[2018-12-31] MEDS: Tamsulosin CAP* 0.4 MG PO SCH (10:50)
[2018-12-31] MEDS: Azithromycin IV(*) 250 MG in NS 0.9% 250 ML* 250 ML IVPB SCH (14:04)
[2018-12-31] MEDS: cefTRIAXone(*) 1 GM in NS 0.9% 50 ML* 50 ML IVPB SCH (14:05)
[2018-12-31 15:31] VITALS: BP 122/60
--- NOTE | 2018-12-31 16:52 | DS ---
CC: Dr. Sifuentes; Dr. Enzo Hassan; Dr. Sailaja Blanco; Dr. Jomar Dumont* DISCHARGE SUMMARY: DATE OF ADMISSION: 12/28/18 DATE OF DISCHARGE: 12/31/18 DISCHARGE CONDITION: Stable DISCHARGE DISPOSITION: Home with VNS. DISCHARGE DIAGNOSES: As follows: 1. Post-obstructive pneumonia likely due to lung mass. 2. Lung mass; bronchoscopy scheduled on 01/07/[address] Blanco. 3. Hypertension, history of. 4. Easy fatigability. HISTORY OF PRESENT ILLNESS/HOSPITAL COURSE: The patient is an 83-year-old gentleman, who is a poor historian with a history of coronary artery disease, status post CABG; bullous pemphigoid; hypertension, who was admitted on 12/28/18 due to post-obstructive pneumonia likely due to lung mass. The patient was seen in consultation on 12/29/[address] Blanco, and per Dr. Blanco, the patient had been scheduled for bronchoscopy on 01/07/19. The patient and family aware and was given phone numbers to call Dr. Blanco's office to further clarify any preparation for the procedure as well as to verify the time and date that he is scheduled for. The patient also complained of some easy fatigability during the hospital stay and his TSH was found to be within normal level this morning at 5.21 prior to discharge. The patient had been advised to follow up and/or call his PCP within 3 days post discharge, to follow up Dr. Blanco's office to determine the details and preprocedural instructions prior to his bronchoscopy. He has been made aware that he is scheduled to see Dr. Blanco on 01/07/19. He was advised to call her office to further clarify any preparation if necessary. He was further advised that if his symptoms resume or develop new ones or feel unwell for any reason he is to call his PCP first. If his PCP cannot entertain him for scheduling issues alone, he was advised to call [facility] if the issue is considered non-emergent. He was advised to call my office regarding any questions, concerns, or further clarifications regarding his discharge plans and /or prescription and to take his medication as prescribed. REVIEW OF SYSTEMS: The patient denied any recent headaches, dizziness, fevers, chills, nausea, vomiting, chest pain, shortness of breath, increased cough, sputum production, abdominal pain, diarrhea and constipation, pain and/or increased frequency in urination, myalgias, arthralgias, throat pain, or new skin lesions. The rest of the 14-point review of systems is otherwise unremarkable. DISCHARGE MEDICATIONS: As follows: 1. Atorvastatin 20 mg p.o. daily. 2. Benzonatate capsule 100 mg p.o. b.i.d. p.r.n. 3. Cholecalciferol tab 400 units p.o. daily. 4. Guaifenesin 1200 mg p.o. b.i.d. 5. Metoprolol tartrate 25 mg p.o. b.i.d. 6. Pantoprazole 40 mg p.o. daily. 7. Prednisone 5 mg every other day. 8. Tamsulosin 0.4 mg p.o. daily. 9. Tylenol 650 mg p.o. q.6 p.r.n. 10. Azithromycin 250 mg p.o. daily for 3 more days. 11. Cefdinir 300 mg p.o. b.i.d. for 7 days. 12. Flunisolide Nasal 2 sprays both nares b.i.d. 13. Floranex tabs, 2 tabs p.o. daily. 14. Adenosylmethionine 400 mg p.o. q.a.m. PHYSICAL EXAMINATION: Reveals the most recent vital signs of records with blood pressure of 99/40 from previous of 115/43 and 108/43, 18 per minute respiratory rate, saturating at 97% room air, 81 beats per minute heart rate, and 98.4 degrees Fahrenheit. General Appearance: The patient is awake, alert, and oriented x3. Not in acute distress. HEENT: Normocephalic and atraumatic. PERRLA. Extraocular muscles intact. Negative for icterus. Moist oral mucosa. Negative throat erythema. Neck is soft and supple with no cervical lymphadenopathy. No JVD. Heart: S1 and S2 within normal limits. Regular rate and rhythm. No murmurs, rubs, or gallops. Chest: Clear to auscultation bilaterally. Good air entry. No wheezes, rales, or rhonchi. Abdomen: Soft, nondistended, nontender. Normoactive bowel sounds x4 quadrants. Extremities: No cyanosis, clubbing, or edema. Psychiatric: No active psychosis, depression, suicidal or homicidal ideations. Skin is warm to touch. TIME SPENT: The total time spent evaluating the patient, reviewing pertinent data, and appropriate documentation is 50 minutes. [id number]/CPS #: [id number] MTDD
== END 2018-12-31 15:45 | disposition home health service (06) | DRG 871 ==
LOC: ED 13:28 → MEDTELE 17:09
PROVIDERS: ADMIT Internal Medicine; ATTEND Student in an Organized Health Care Education/Training Program
DX: A41.9 Sepsis, unspecified organism (principal); J18.8 Other pneumonia, unspecified organism; I50.22 Chronic systolic (congestive) heart failure; L12.0 Bullous pemphigoid; I95.9 Hypotension, unspecified; I11.0 Hypertensive heart disease with heart failure; M06.9 Rheumatoid arthritis, unspecified; C61 Malignant neoplasm of prostate; Z95.1 Presence of aortocoronary bypass graft; D64.9 Anemia, unspecified; R91.8 Other nonspecific abnormal finding of lung field; N40.1 Benign prostatic hyperplasia with lower urinary tract symptoms; R35.0 Frequency of micturition; E78.5 Hyperlipidemia, unspecified; I25.10 Atherosclerotic heart disease of native coronary artery without angina pectoris; M19.90 Unspecified osteoarthritis, unspecified site; I25.2 Old myocardial infarction; Z79.1 Long term (current) use of non-steroidal anti-inflammatories (NSAID); Z79.52 Long term (current) use of systemic steroids; Z79.899 Other long term (current) drug therapy; Z88.7 Allergy status to serum and vaccine; Z80.3 Family history of malignant neoplasm of breast; Z82.3 Family history of stroke; Z83.79 Family history of other diseases of the digestive system; Z87.891 Personal history of nicotine dependence
CPT/HCPCS: 36415; 71045; 71260; 80053; 80320; 81003; 81015; 82728; 83540; 83550; 83605; 83735; 83880; 84100; 84443; 84484; 85025; 85379; 85652; 86140; 87040; 87070; 87086; 87205; 87899; 93005; 93306; 99284; A9270-GY; G0480; G8978-GP-CJ; G8979-GP-CI; J0456; J0696; J1644; J7512; Q9967

== ENCOUNTER → 2019-01-07 10:30 | Day surgery (SDC) | payer MEDICARE ==
[~2019-01-07 10:30] MED LIST: Acetaminophen TAB* 325 MG PO PRN; Albuterol/Ipratropium NEB.SOL* Albuterol 2.5 MG/Ipratropium 0.5 MG 3 ML ONE; Dexamethasone IV* 4 MG/ML 1 ML (4 MG) ONE; Furosemide IV* 10 MG/ML 2 ML VIAL (20 MG) ONE; Ketorolac INJ* 30 MG/ML 1 ML VIAL IV PRN; Lidocaine 2% PF * 5 ML VIAL ONE; Midazolam* 1 MG/ML 2 ML VIAL (2 MG) ONE; Naloxone* 0.4 MG/ML 1 ML VIAL IV PRN; Ondansetron INJ* 2 MG/ML VIAL ONE; Phenylephrine 10 MG/ML VIAL* 1 ML VIAL ONE; Propofol* 10 MG/ML 20 ML BTL ONE; Rocuronium* 10 MG/ML VIAL ONE; Sugammadex * 200 MG/2 ML VIAL IV PUSH ONE; fentaNYL* 50 MCG/ML 2 ML VIAL (100 MCG VIAL) ONE
[2019-01-07 15:40] VITALS: BP 105/52
--- NOTE | 2019-01-07 21:13 | PRO ---
BRONCHOSCOPY REPORT: DATE OF PROCEDURE: 01/07/19 - [facility] PROCEDURE PERFORMED: Bronchoscopy with endobronchial ultrasound-guided fine needle aspiration of mediastinal hilar nodes, bronchoalveolar lavage. PREPROCEDURAL DIAGNOSIS: Right middle lobe mass and enlarged precarinal node. ANESTHESIA: General anesthesia. ANESTHESIOLOGIST: Dr. Murguia. DESCRIPTION OF PROCEDURE: Informed consent was obtained from the patient prior to the procedure after all the risks and benefits were thoroughly explained. The patient was intubated with size 8.5 endotracheal tube. Appropriate time- out was performed and agreed on by attending staff prior to the procedure. A flexible Olympus bronchoscope was inserted through ET tube for airway inspection. ET tube positioning confirmed to be 2 cm above the level of felipe. Thick white secretions were noted on both sides and were suctioned out. No obvious endobronchial lesions were noted. There is evidence of narrowing of right middle lobe bronchus possibly from extrinsic compression. Bronchoscope was then withdrawn. EBUS bronchoscope was then inserted. Station L4 was mildly enlarged and was sampled with two passes. Rapid onsite evaluation revealed no lymphatic tissue. Station 7 was then accessed with two passes. Rapid onsite evaluation revealed benign lymphatic tissue. No malignant cells noted. R4 was then accessed with three passes. No malignant cells were noted. Lymphatic tissue was noted. Station 10 was then accessed with three passes. Rapid onsite evaluation revealed lymphatic tissue with no malignant cells. Rest of the specimen was placed in CytoLyt. The patient tolerated the procedure well. The patient was extubated and seen in Recovery in optimal condition. Bronchoalveolar lavage was obtained from right middle lobe and was sent for microbiological studies. [id number]/CPS #: [id number] [facility]
== END | disposition home or self-care (01) ==
LOC: OR 10:30
PROVIDERS: ATTEND Internal Medicine
DX: R91.8 Other nonspecific abnormal finding of lung field (principal); R06.02 Shortness of breath; L12.0 Bullous pemphigoid; I10 Essential (primary) hypertension; N40.0 Benign prostatic hyperplasia without lower urinary tract symptoms; M06.9 Rheumatoid arthritis, unspecified; Z86.79 Personal history of other diseases of the circulatory system; Z95.1 Presence of aortocoronary bypass graft; I25.2 Old myocardial infarction; E78.5 Hyperlipidemia, unspecified; D64.9 Anemia, unspecified; Z88.8 Allergy status to other drugs, medicaments and biological substances; Z87.891 Personal history of nicotine dependence
CPT/HCPCS: 87070; 87077; 87102; 87186; 87205; 88172; 88173; 88177; 88305; A9270-GY; J1100; J1940; J2250; J2405; J2704; J3010

== ENCOUNTER 2021-09-21 18:17 | Inpatient (IN) ==
[2021-09-21] MEDS ORDERED: Lactated Ringers 500 ml BAG 500 ML IV ONE ×2 (19:14→22:20)
[2021-09-21 20:51] LABS: Hematocrit 32 % (42-52); Hemoglobin 10.4 g/dL (14.0-18.0); Mean Corpuscular HGB Conc 33 g/dL (31-36); Mean Corpuscular Hemoglobin 29 pg (27-31); Mean Corpuscular Volume 89 fL (80-94); Platelet Count 175 10^3/uL (150-450); Red Blood Count 3.57 10^6 /uL (4.18-5.48); Red Cell Distribution Width 14 % (10-15); White Blood Count 19.1 10^3/uL (3.5-10.8)
[2021-09-21] MEDS ORDERED: Iodixanol (CONTRAST) 320 MG/ML 100 ML SDV IV ONE (20:58)
[2021-09-21 21:01] LABS: ABS Lymphocytes 0.4 10^3/ul (1.0-4.8); ABS Monocytes 1.6 10^3/ul (0-0.8); ABS Neutrophils 17.1 10^3/ul (1.5-7.7)
[2021-09-21 21:07] LABS: ALT 12 U/L (7-52); AST 23 U/L (13-39); Albumin 3.2 g/dL (3.2-5.2); Albumin/Globulin Ratio 1.2 (1-3); Alkaline Phosphatase 51 U/L (35-149); Blood Urea Nitrogen 43 mg/dL (6-24); CO2 Carbon Dioxide 28 mmol/L (22-32); Calcium 8.9 mg/dL (8.6-10.3); Chloride 104 mmol/L (101-111); Globulin 2.7 g/dL (2-4); Glucose 82 mg/dL (70-100); Magnesium 1.9 mg/dL (1.9-2.7); Sodium 136 mmol/L (135-145); Total Protein 5.9 g/dL (6.4-8.9); eGFR CKD-EPI 33.3 (>60)
[2021-09-21 21:08] LABS: Anion Gap 4 mmol/L (2-11); Potassium 5.1 mmol/L (3.5-5.0)
[2021-09-21] MEDS ORDERED: Piperacillin/Tazobac ADVAN 3.375 GM in NS 0.9% 100 ml BAG 100 ML IV ONE (22:19)
[2021-09-21] MEDS ORDERED: Piperacillin/Tazobac 3.375 GM BAG ONE (22:52)
[2021-09-22] MEDS ORDERED: Lactated Ringers 1000 ml BAG 1,000 ML IV ONE
[2021-09-22] MEDS ORDERED: Acetaminophen IV 1 GM/100ML 100 ML IV PRN
[2021-09-22] MEDS ORDERED: Ondansetron 4 mg VIAL 2 MG/ML 2 ml VIAL IV PRN
[2021-09-22] MEDS ORDERED: Piperacillin/Tazobac ADVAN 3.375 GM in NS 0.9% 100 ml BAG 100 ML IV ONE (00:03)
[2021-09-22] MEDS ORDERED: Acetaminophen IV 1 GM/100ML VI 100 ML IV PRN (00:21)
[2021-09-22] MEDS ORDERED: Zosyn per Pharmacy NOTE FOLLOW UP SCH (01:00)
[2021-09-22 01:21] LABS: Activated Partial Thrombo Time 25.8 seconds (26.0-38.0); INR 1.44 (0.86-1.15)
[2021-09-22 02:15] LABS: Urine Creatinine Concentration 134.01 mg/dL
[2021-09-22] MEDS: ZOSYN 3.375 GM Q8H per EXTENDED INFUSION IV SCH ×3 (03:15→18:38)
[2021-09-22] MEDS: Hydrocortisone INJ 100 MG/2ML 2 ML VIAL IV SCH ×3 (03:27→22:27)
[2021-09-22] MEDS: Heparin 5000 UNITS/ML 1 mL VIAL SUBCUT SCH ×2 (06:17→15:02)
[2021-09-22 06:34] LABS: INR 1.43 (0.86-1.15)
[2021-09-22 06:35] LABS: ABS Basophils 0.1 10^3/ul (0-0.2); ABS Lymphocytes 0.1 10^3/ul (1.0-4.8); ABS Monocytes 0.7 10^3/ul (0-0.8); ABS Neutrophils 15.1 10^3/ul (1.5-7.7); Eosinophil % 0.1 %; Hematocrit 31 % (42-52); Hemoglobin 10.1 g/dL (14.0-18.0); Lymphocyte % 0.9 %; Mean Corpuscular HGB Conc 33 g/dL (31-36); Mean Corpuscular Hemoglobin 30 pg (27-31); Mean Corpuscular Volume 90 fL (80-94); Mean Platelet Volume 8.6 fL (7.4-10.4); Platelet Count 151 10^3/uL (150-450); Red Blood Count 3.42 10^6 /uL (4.18-5.48); Red Cell Distribution Width 15 % (10-15)
[2021-09-22 06:44] LABS: Anion Gap 6 mmol/L (2-11); Blood Urea Nitrogen 43 mg/dL (6-24); CO2 Carbon Dioxide 26 mmol/L (22-32); Calcium 8.2 mg/dL (8.6-10.3); Chloride 106 mmol/L (101-111); Glucose 76 mg/dL (70-100); Potassium 4.3 mmol/L (3.5-5.0); Sodium 138 mmol/L (135-145); eGFR CKD-EPI 40.9 (>60)
[2021-09-22] MEDS ORDERED: Perflutren Lipid Microsphere 3 ML VIAL ONE (08:12)
[2021-09-22] MEDS ORDERED: Pantoprazole VIAL 40 MG VIAL IV SCH (09:00)
[2021-09-22] MEDS ORDERED: Metoprolol Tartrate 5 mg VIAL 5 ml VIAL (1 mg/ml) IV SCH ×2 (09:00→12:00)
[2021-09-22] MEDS ORDERED: NS 0.9% 1000 ml BAG 1,000 ML IV ONE (09:15)
[2021-09-22 12:12] LABS: Urine Appearance Cloudy; Urine Bilirubin Negative (Negative); Urine Blood Negative (Negative); Urine Color Yellow; Urine Glucose Negative (Negative); Urine Ketones Negative (Negative); Urine Nitrite Negative (Negative); Urine Protein 1+(30 mg/dL) (Negative); Urine Specific Gravity 1.036 (1.002-1.030); Urine Urobilinogen Negative (Negative)
[2021-09-22 12:16] LABS: Urine Bacteria Absent (Absent); Urine Red Blood Cell Absent (Absent); Urine White Blood Cell Absent (Absent)
[2021-09-22 12:20] LABS: Troponin I 0.66 ng/mL (<0.03)
[2021-09-22 12:20] LABS: Troponin I 1.06 ng/mL (<0.03)
[2021-09-22 12:25] LABS: Ferritin 152.3 ng/mL (24-336)
[2021-09-22] MEDS: Enoxaparin 80 MG/0.8 ML SYR SUBCUT SCH (18:38)
[2021-09-23] MEDS: ZOSYN 3.375 GM Q8H per EXTENDED INFUSION IV SCH ×3 (03:09→18:34)
[2021-09-23 06:12] LABS: ABS Lymphocytes 0.1 10^3/ul (1.0-4.8); ABS Monocytes 0.6 10^3/ul (0-0.8); Hematocrit 27 % (42-52); Hemoglobin 8.8 g/dL (14.0-18.0); Lymphocyte % 0.9 %; Mean Corpuscular HGB Conc 33 g/dL (31-36); Mean Corpuscular Hemoglobin 30 pg (27-31); Mean Corpuscular Volume 89 fL (80-94); Mean Platelet Volume 9.1 fL (7.4-10.4); Platelet Count 143 10^3/uL (150-450); Red Blood Count 2.99 10^6 /uL (4.18-5.48); Red Cell Distribution Width 15 % (10-15); White Blood Count 13.8 10^3/uL (3.5-10.8)
[2021-09-23] MEDS: Enoxaparin 80 MG/0.8 ML SYR SUBCUT SCH ×2 (06:30→18:35)
[2021-09-23 06:33] LABS: Albumin 2.6 g/dL (3.2-5.2); Calcium 7.9 mg/dL (8.6-10.3); Globulin 2.5 g/dL (2-4); Potassium 4.3 mmol/L (3.5-5.0); Total Bilirubin 0.2 mg/dL (0.2-1.0); Total Protein 5.1 g/dL (6.4-8.9); eGFR CKD-EPI 41.2 (>60)
[2021-09-23] MEDS: Hydrocortisone INJ 100 MG/2ML 2 ML VIAL IV SCH (08:16)
[2021-09-23] MEDS: Cholecalciferol (VIT D3) 400 units TAB PO SCH (08:21)
[2021-09-23] MEDS ORDERED: BICALUTAMIDE 50 MG PO SCH (09:00)
[2021-09-23 14:06] LABS: Hematocrit 31 % (42-52); Hemoglobin 10.3 g/dL (14.0-18.0)
[2021-09-23 14:08] LABS: % Iron Saturation 5 % (14 - 50); Total Iron Binding Capacity 137 mcg/dL (250 - 400)
[2021-09-24] MEDS: ZOSYN 3.375 GM Q8H per EXTENDED INFUSION IV SCH ×3 (03:00→18:36)
[2021-09-24] MEDS: Enoxaparin 80 MG/0.8 ML SYR SUBCUT SCH ×2 (06:28→17:22)
[2021-09-24] MEDS: Cholecalciferol (VIT D3) 400 units TAB PO SCH (08:40)
[2021-09-24 09:51] LABS: Calcium 8.6 mg/dL (8.6-10.3); Potassium 3.3 mmol/L (3.5-5.0); eGFR CKD-EPI 46.7 (>60)
[2021-09-24] MEDS ORDERED: Potassium Chloride LIQUID 20 MEQ/15 ML LIQUID PO ONE (10:12)
[2021-09-24 10:30] LABS: ABS Eosinophils 0.4 10^3/ul (0-0.6); ABS Lymphocytes 0.2 10^3/ul (1.0-4.8); ABS Monocytes 0.3 10^3/ul (0-0.8); ABS Neutrophils 9.9 10^3/ul (1.5-7.7); Eosinophil % 3.5 %; Hematocrit 30 % (42-52); Hemoglobin 10.2 g/dL (14.0-18.0); Lymphocyte % 1.6 %; Mean Corpuscular HGB Conc 33 g/dL (31-36); Mean Corpuscular Hemoglobin 30 pg (27-31); Mean Corpuscular Volume 90 fL (80-94); Nucleated Red Blood Cells % 0.1; Platelet Count 168 10^3/uL (150-450); Red Blood Count 3.39 10^6 /uL (4.18-5.48); Red Cell Distribution Width 14 % (10-15); White Blood Count 10.7 10^3/uL (3.5-10.8)
[2021-09-24] MEDS: Fluticasone NASAL SPRAY 50MCG 16 gm SPRAY BTL BOTH NARES SCH (14:04)
[2021-09-24] MEDS: NS 0.9% 1000 ml BAG 1,000 ML IV SCH (17:18)
[2021-09-25] MEDS: ZOSYN 3.375 GM Q8H per EXTENDED INFUSION IV SCH ×3 (02:53→19:13)
[2021-09-25] MEDS: NS 0.9% 1000 ml BAG 1,000 ML IV SCH (02:54)
[2021-09-25 05:23] LABS: ABS Eosinophils 0.5 10^3/ul (0-0.6); ABS Lymphocytes 0.3 10^3/ul (1.0-4.8); ABS Monocytes 0.7 10^3/ul (0-0.8); ABS Neutrophils 8.1 10^3/ul (1.5-7.7); Eosinophil % 4.9 %; Hematocrit 29 % (42-52); Hemoglobin 9.6 g/dL (14.0-18.0); Lymphocyte % 3.5 %; Mean Corpuscular HGB Conc 33 g/dL (31-36); Mean Corpuscular Hemoglobin 30 pg (27-31); Mean Corpuscular Volume 91 fL (80-94); Mean Platelet Volume 8.8 fL (7.4-10.4); Platelet Count 142 10^3/uL (150-450); Red Blood Count 3.23 10^6 /uL (4.18-5.48); Red Cell Distribution Width 15 % (10-15); White Blood Count 9.6 10^3/uL (3.5-10.8)
[2021-09-25 05:30] LABS: Calcium 8.3 mg/dL (8.6-10.3); Potassium 4.1 mmol/L (3.5-5.0); eGFR CKD-EPI 54.3 (>60)
[2021-09-25] MEDS ORDERED: Heparin 5000 UNITS/ML 1 mL VIAL SUBCUT SCH (06:00)
[2021-09-25] MEDS: Cholecalciferol (VIT D3) 400 units TAB PO SCH (10:29)
[2021-09-25] MEDS: Fluticasone NASAL SPRAY 50MCG 16 gm SPRAY BTL BOTH NARES SCH (10:33)
[2021-09-25] MEDS: Carboxymethylcellulose/Glyceri 10 ML OPHTH.GEL lubricant eye gel BOTH EYES SCH (20:23)
[2021-09-26] MEDS: ZOSYN 3.375 GM Q8H per EXTENDED INFUSION IV SCH ×2 (02:45→10:20)
[2021-09-26 07:49] LABS: Calcium 8.1 mg/dL (8.6-10.3); Potassium 3.8 mmol/L (3.5-5.0); eGFR CKD-EPI 74.2 (>60)
[2021-09-26 08:19] LABS: Hematocrit 28 % (42-52); Hemoglobin 9.2 g/dL (14.0-18.0); Mean Corpuscular HGB Conc 33 g/dL (31-36); Mean Corpuscular Hemoglobin 30 pg (27-31); Mean Corpuscular Volume 90 fL (80-94); Mean Platelet Volume 8.4 fL (7.4-10.4); Platelet Count 161 10^3/uL (150-450); Red Blood Count 3.11 10^6 /uL (4.18-5.48); Red Cell Distribution Width 15 % (10-15); White Blood Count 9.2 10^3/uL (3.5-10.8)
[2021-09-26] MEDS: Fluticasone NASAL SPRAY 50MCG 16 gm SPRAY BTL BOTH NARES SCH (09:55)
[2021-09-26] MEDS: Cholecalciferol (VIT D3) 400 units TAB PO SCH (09:55)
[2021-09-26 11:00] LABS: ABS Eosinophils 0.4 10^3/ul (0-0.6); ABS Lymphocytes 0.5 10^3/ul (1.0-4.8); ABS Monocytes 0.9 10^3/ul (0-0.8); ABS Neutrophils 7.4 10^3/ul (1.5-7.7); Eosinophil % 4.3 %; Lymphocyte % 5.5 %
[2021-09-26] MEDS ORDERED: COVID-19 VACCINE, MRNA(MODERNA)/PF 100 MCG/0.5 ML IM ONE (14:45)
[2021-09-26] MEDS: cefTRIAXone 1 gm/50 mL NS BAG 1 GM/50 ML BAG IVPB SCH (16:21)
[2021-09-26] MEDS: metroNIDAZOLE IV 500 MG/100ML 500 MG/100 ML BAG IVPB SCH (17:06)
[2021-09-26] MEDS: Carboxymethylcellulose/Glyceri 10 ML OPHTH.GEL lubricant eye gel BOTH EYES SCH (20:22)
[2021-09-27] MEDS: metroNIDAZOLE IV 500 MG/100ML 500 MG/100 ML BAG IVPB SCH ×3 (00:59→16:23)
[2021-09-27] MEDS: Fluticasone NASAL SPRAY 50MCG 16 gm SPRAY BTL BOTH NARES SCH (08:35)
[2021-09-27] MEDS: Cholecalciferol (VIT D3) 400 units TAB PO SCH (08:35)
[2021-09-27 15:31] LABS: Rapid COVID-19 Molecular Undetected (Undetected)
[2021-09-27] MEDS: cefTRIAXone 1 gm/50 mL NS BAG 1 GM/50 ML BAG IVPB SCH (15:32)
[2021-09-27] MEDS: Carboxymethylcellulose/Glyceri 10 ML OPHTH.GEL lubricant eye gel BOTH EYES PRN ×2 (17:42→22:13)
[2021-09-28] MEDS: metroNIDAZOLE IV 500 MG/100ML 500 MG/100 ML BAG IVPB SCH (00:04)
[2021-09-28 05:10] LABS: Hematocrit 28 % (42-52); Hemoglobin 9.3 g/dL (14.0-18.0); Mean Corpuscular HGB Conc 33 g/dL (31-36); Mean Corpuscular Hemoglobin 29 pg (27-31); Mean Corpuscular Volume 89 fL (80-94); Mean Platelet Volume 7.7 fL (7.4-10.4); Platelet Count 228 10^3/uL (150-450); Red Blood Count 3.19 10^6 /uL (4.18-5.48); Red Cell Distribution Width 15 % (10-15); White Blood Count 8.5 10^3/uL (3.5-10.8)
[2021-09-28 05:40] LABS: Calcium 8.1 mg/dL (8.6-10.3); Potassium 3.9 mmol/L (3.5-5.0); eGFR CKD-EPI 84.2 (>60)
[2021-09-28 05:53] LABS: ABS Eosinophils 0.4 10^3/ul (0-0.6); ABS Lymphocytes 1.1 10^3/ul (1.0-4.8); ABS Monocytes 1.1 10^3/ul (0-0.8); ABS Neutrophils 5.9 10^3/ul (1.5-7.7); Eosinophil % 4.6 %; Lymphocyte % 12.8 %; Polychromasia 1+
[2021-09-28 06:01] LABS: RBC Morphology Normal (Normal)
[2021-09-28] MEDS: Cholecalciferol (VIT D3) 400 units TAB PO SCH (09:17)
[2021-09-28] MEDS: Carboxymethylcellulose/Glyceri 10 ML OPHTH.GEL lubricant eye gel BOTH EYES PRN (09:19)
[2021-09-28] MEDS: Fluticasone NASAL SPRAY 50MCG 16 gm SPRAY BTL BOTH NARES SCH (09:23)
[2021-09-28 11:20] VITALS: BP 94/62
== END 2021-09-28 15:00 | DRG 871 ==
LOC: ED 18:17 → SUATTDRO 23:56 → EDHOLD 23:56 → SSU 09-22 01:02
PROVIDERS: ADMIT Internal Medicine; ATTEND Internal Medicine